=== PATIENT | female | born 1960 | race Caucasian/White ===

== ENCOUNTER 2019-04-15 02:46 | Observation (INO) | payer MEDICARE, OTHER ==
[~2019-04-15] VITALS: Ht 162.6 cm; Wt 77.6 kg
--- NOTE | ~2019-04-15 | HEMODYNAMI ---
PATIENT:MINGO CORDERO MEDICAL RECORD: [id number] : 60 LOCATION:[facility] D.2128 ADMISSION DATE: 04/15/19 Generatedon:04/15/201914:44 Patient name: MINGO CORDERO Patient #: [id number] SSN: D OB: 1960 Date of study: 04/15/2019 Page: Of Hemodynamic Procedure Report Patient Data Patient Demographics Procedure consent was obtained First Name: MINGO Gender: Female Last Name: GIL : 1960 [facility] Initial: AIDEE Age: 59 year(s) Patient #: [id number] Race: Unknown Additional ID: [id number] Contact details Address: [address] [place] [address] State: [place] City: [place] Zip code: [address] Past Medical History Allergies Allergen Reaction Date Comments Reported Other allergy 04/15/2019 SULFA Admission Admission Data Admission Date: 04/15/2019 Admission Time: 4:14 Admit Source: Emergency department Room #: D.2128 Lab Results Lab Result Date: 04/15/2019 Lab Result Time: 3:03 Biochemistry Name Units Result Min Max BUN mg/dl 10 --(-*--)-- 7 18 Creatinine mg/dl 0.7 --(*---)-- 0.6 1.3 CBC Name Units Result Min Max Hematocrit % 35.2 *-(----)-- 42 54 Hemoglobin g/dl 12.4 *-(----)-- 13.5 17.5 Procedure Procedure Types Cath Procedure Diagnostic Procedure LHC LHC w/Coronaries w/Grafts Sedation Charges Moderate Sedation up to 15 minutes PCI Procedure AMI/SVG/UPPER DOUBLER PTCA or Stent SVG-BMS/BONNIE Initial Procedure Description Procedure Date Procedure Date: 04/15/2019 Procedure Start Time: 14:19 Procedure End Time: 14:43 Procedure Staff Name Function Russ Packer MD Performing Physician Harinder Garcia RT Monitor Mary Alice Bustillo RT Scrub Mildred Cristiano RN Nurse Procedure Data Cath Procedure Fluoroscopy Diagnostic fluoroscopy Total fluoroscopy Time: 5.4 time: 5.4 min min Diagnostic fluoroscopy Total fluoroscopy dose: 592 dose: 592 mGy mGy Contrast Material Contrast Material Type Amount (ml) Isovue 300 86 Entry Location Entry Primary Successful Side Size Upsize Upsize Entry Closure Succes sful Closure Location (Fr) 1 (Fr) 2 (Fr) Remarks Device Remarks Femoral Right 5 Fr 6 Fr Exoseal artery Short Estimated blood loss: 10 ml Diagnostic catheters Device Type Used For End Catheter Placement MULTIPACK JL 4.0 5Fr Procedure catheter MULTIPACK 3DRC 5Fr Procedure catheter MULTIPACK Pigtail 5 Fr Procedure catheter Procedure Complications No complications Procedure Medications Medication Administration Route Dosage 0.9% NaCl I.V. 100 ml/hr Oxygen etCO2 Nasal cannula 2 l/min Lidocaine 2% added to field 20 Heparin Flush Bag added to field 2 bags (1000units/500ml NS) Versed I.V. 2 mg Fentanyl I.V. 50 mcg Heparin Bolus I.V. 5000 units Integrilin (Bolus I.V. 6.8 ml 2mg/ml) Plavix P.O. 600 mg Fentanyl I.V. 50 mcg Hemodynamics Rest HGB: 12.4 (g/dl) Heart Rate: 71 (bpm) Pressure Samples Time Site Value (mmHg) Purpose Heart Use Rate(bpm) 14:25 LV 151/5,13 Snapshot 68 14:26 AO 156/80(114) Pullback 67 14:26 LV 155/12,17 Pullback 67 Gradients Valve Time Site 1 Site 2 Mean SEP/DFP Peak To Heart Use (mmHg) (sec/min) Peak Rate (mmHg) (bpm) Aortic 14:26 LV AO 0 18 0 67 155/12,17 156/80(114) Calculations Valve P-P Mean Valve Index Valve Source Name Gradient Area Flow (cm2) Aortic 0 0 0 0 Snapshots Pre Cath Intra NCS Post Cath Vital Signs Time Heart Resp SPO2 etCO2 NIBP (mmHg) Rhythm Pain Sedation Rate (ipm) (%) (mmHg) Status Level (bpm) 14:14:04 73 13 98 34.3 186/108(148) NSR 0 (11) 10(A) , No pain 14:18:38 63 16 97 23.8 171/92(136) NSR 0 (11) 10(A) , No pain 14:23:09 69 14 98 23.1 170/96(139) NSR 0 (11) 10(A) , No pain 14:27:37 66 15 98 21.6 163/98(134) NSR 0 (11) 9(A) , No pain 14:32:05 67 13 98 28.9 159/87(120) NSR 0 (11) 9(A) , No pain 14:36:31 67 18 100 35.7 167/90(144) NSR 0 (11) 10(A) , No pain 14:41:02 67 10 99 36.5 171/97(144) NSR 0 (11) 10(A) , No pain Medications Time Medication Route Dose Verified Delivered Reason Notes Effectiveness by by 14:12:49 0.9% NaCl I.V. 100 Russ Mildred used for ml/hr [facility] procedure MD BUSBY 14:12:55 Oxygen etCO2 2 Russ Vigila used for Nasal l/min [place] Cristiano procedure cannula MD BUSBY 14:13:01 Lidocaine 2% added 20ml Russ Solano for local to vial [facility] anesthetic field MD DELANEY 14:13:05 Heparin Flush added 2 Russ Solano used for Bag to bags [facility] procedure (1000units/500ml field MD DELANEY NS) 14:19:14 Versed I.V. 2 mg Russ Vigila for sedation [facility] Suman Quinonez MD, RN 14:19:19 Fentanyl I.V. 50 Russ Vigila for sedation mcg [facility] Suman Quinonez MD, RN 14:24:44 Fentanyl I.V. 50 Russ Vigila for sedation mcg [facility] Suman Quinonez MD, RN 14:29:35 Heparin Bolus I.V. 5000 Russ Vigila for verif ied units [facility] anticoagulation with Dr. MD BUSBY [place] 14:29:53 Integrilin I.V. 6.8 Russ Vigila for waste d (Bolus 2mg/ml) ml [facility] Suman Quinonez antiplatelet 302mL MD BUSBY therapy 14:31:32 Plavix P.O. [address] for mg [facility] Suman Quinonez antiplatelet MD BUSBY therapy Procedure Log Time Note 13:52:24 Informed consent obtained and on chart 13:52:27 Admit Source: Emergency department 13:53:43 Harinder Garcia RT(R) sent for patient. Start room use. 13:53:44 Time tracking: Regular hours (M-F 7:00 - 5:00) 13:53:47 Plan of Care:Hemodynamics will remain stable., Cardiac rhythm will remain stable., Comfort level will be maintained., Respiratory function will remain adequate., Patient/ family verbilizes understanding of procedure., Procedure tolerated without complication., Recovers from procedure without complications.. 14:04:14 Patient received from Med II to CCL 1 Alert and oriented. Tansferred to table in Prone position. 14:04:15 Warm blankets applied, and jose ramon hugger turned on for patient comfort. 14:04:16 Correct patient and procedure confirmed by team. 14:04:16 ECG and BP/O2 sat monitors applied to patient. 14:12:40 Vital chart was started 14:12:49 0.9% NaCl 100 ml/hr I.V. was administered by Mildred Quinonez RN; used for procedure; 14:12:55 Oxygen 2 l/min etCO2 Nasal cannula was administered by Mildred Quinonez RN; used for procedure; 14:13:01 Lidocaine 2% 20ml vial added to field was administered by Russ Packer MD; for local anesthetic; 14:13:05 Heparin Flush Bag (1000units/500ml NS) 2 bags added to field was administered by Russ Packer MD; used for procedure; 14:15:12 Baseline sample Acquired. 14:15:14 Rhythm: sinus rhythm 14:15:16 Full Disclosure recording started 14:15:26 H&P Date Dictated: 04/15/2019 Within 30 days and on chart.. 14:15:28 Pre-procedure instructions explained to patient. 14:15:28 Pre-op teaching completed and patient verbalized understanding. 14:15:29 Family in waiting room. 14:15:31 Patient NPO since Breakfast. 14:15:42 Patient allergic to Other allergySULFA 14:15:47 Is the patient allergic to Iodine/contrast media? No. 14:15:49 Is patient on blood thinner?No 14:15:50 Patient diabetic? Yes. 14:15:51 If diabetic: On Metformin? Yes 14:15:53 If on Metformin: Last Dose? 04/14/2019 14:15:55 Previous problem with sedation/anesthesia? No ? 14:15:57 Snore? No 14:15:57 Sleep apnea? No 14:15:58 Deviated septum? No 14:16:02 Opens mouth fully? Yes 14:16:04 Sticks out tongue? Yes 14:16:05 Airway obstruction? No ? 14:16:09 Dentures? No ? 14:16:11 Pre procedure: right dorsailis pedis pulse 2+ Normal; easily identifiable; not easily obliterated 14:16:13 Patient pain scale 0/10 ?. 14:16:21 IV patent on arrival in right forearm with 0.9% NaCl at [facility]. 14:18:22 Lab Result : BUN 10 mg/dl 14:18:22 Lab Result : Creatinine 0.7 mg/dl 14:18: Lab Result : Hemoglobin 12.4 g/dl 14:18: Lab Result : Hematocrit 35.2 % 14:18:26 Lab results completed and on chart. 14:18:29 Right groin area was prepped with chlora-prep and draped in sterile fashion 14:18:31 Alarms reviewed by R. N. 14:18:31 Sharps counted by scrub and verified by R.N. 14:18:34 Use device set Femoral Dx 14:18:35 ACIST Syringe (83339) opened to sterile field. 14:18:35 Bag Decanter (2002S) opened to sterile field. 14:18:39 Medline Cath Pack ([id number]) opened to sterile field. 14:18:41 ACIST Hand Control (73985) opened to sterile field. 14:18:41 ACIST Manifold (32051) opened to sterile field. 14:18:42 Tegaderm 4 x 4 (1626W) opened to sterile field. 14:18:45 SHEATH 5FR Susan (LWT095) opened to sterile field. 14:18:48 DIAGNOSTIC WIRE .035 260cm J wire (990126) opened to sterile field. 14:18:49 DIAGNOSTIC Multipack 5Fr catheter set ([id number]) opened to sterile field. 14:18:55 Physician arrived 14:18:55 --------ALL STOP TIME OUT------ 14:18:55 Final Timeout: patient, procedure, and site verified with staff and physician. All members of the team are in agreement. 14:18:57 Right groin site verified by team. 14:18:59 Maximum allowable Isovue 300 dose 300ml. Physician notified. (300ml for normal creatinines. For patients with creatinine of 1.7 or higher multiply weight(kg) x 5 divided by creatinine.) 14::02 Fire Safety Assessment: A--An alcohol-based skin anteseptic being used preoperatively., C--Open oxygen or nitrous oxide is being used., D--An ESU, laser, or fiber-optic light is being used. 14:: Physical assessment completed. ASA score P 2 - A patient with mild systemic disease as per Russ Packer MD. 14:: Sedation plan: IV Moderate Sedation Medication:Versed, Fentanyl 14:: Versed 2 mg I.V. was administered by Mildred Quinonez RN; for sedation; ::18 Procedure started. 14:: Fentanyl 50 mcg I.V. was administered by Mildred Quinonez RN; for sedation; 14:: Local anesthetic to right femoral artery with Lidocaine 2% by Russ Packer MD.INITIAL ACCESS ONLY 14:19:29 A 5 Fr sheath was inserted into the Right Femoral artery 14:19:53 Zero performed for pressure channel P1 14:20:28 A MULTIPACK JL 4.0 5Fr catheter was advanced over the wire and used for Procedure. 14:21:30 LCA angiography performed. 14:22:05 Catheter exchanged over wire. 14:22:09 A MULTIPACK 3DRC 5Fr catheter was advanced over the wire and used for Procedure. 14:22:17 RCA angiography performed. 14:24:04 SVG to LAD angiography performed. 14:24:09 SVG to RCA angiography performed. 14:24:17 Catheter exchanged over wire. 14:24:21 A MULTIPACK Pigtail 5 Fr catheter was advanced over the wire and used for Procedure. 14:24:44 Fentanyl 50 mcg I.V. was administered by Mildred Quinonez RN; for sedation; 14::58 LV gram done using WALTON 14:26:00 Injector settings: Ml/sec: 10, Volume: 20, 14:26:01 LV hemodynamics recorded. 14:26:05 EF : 55 % 14:26:08 Catheter removed. 14:26:11 SHEATH 6FR Susan (XYN690) opened to sterile field. 14:26:23 GUIDE 6FR HS I catheter (LA6HSI) opened to sterile field. 14:26:24 WHISPER 300cm guide wire ([id number]) opened to sterile field. 14:26:24 INFLATOR Merit BasixCompak (II5712) opened to sterile field. 14:27:33 Sheath upsized to a 6 Fr Short. 14:29:01 6 Fr HSI guide catheter was inserted over the wire 14:29:08 Guide Catheter removed. unable to cannulate vessel. 14:29:15 GUIDE 6FR MB 1 catheter (LA6MB1) opened to sterile field. 14:29:23 6 Fr MB1 guide catheter was inserted over the wire 14:29:35 Heparin Bolus 5000 units I.V. was administered by Mildred Quinonez RN; for anticoagulation; verified with Dr. Marquis 14:29:53 Integrilin (Bolus 2mg/ml) 6.8 ml I.V. was administered by Mildred Quinonez RN; for antiplatelet therapy; wasted 302mL 14:30:02 WHISPER wire advanced. 14:31:32 Plavix 600 mg P.O. was administered by Mildred Quinonez RN; for antiplatelet therapy; 14:32:35 Wire advanced across lesion. 14:33:52 Inflate balloon Inflation number: 1 A EMERGE OTW 3.5 x 20 balloon ([id number]) was prepped and advanced across the Aorta Right -> R PDA , then inflated to 18 SALAZAR for 0:30 (min:sec) . 14:35:07 Inflation number: 2 The EMERGE OTW 3.5 x 20 balloon ([id number]) was reinflated across the Aorta Right -> R PDA , to 16 SALAZAR for 0:30 (min:sec) . 14:36:37 Inflation number: 3 The EMERGE OTW 3.5 x 20 balloon ([id number]) was reinflated across the Aorta Right -> R PDA , to 16 SALAZAR for 0:30 (min:sec) . 14:37:42 Inflation number: 4 The EMERGE OTW 3.5 x 20 balloon ([id number]) was reinflated across the Aorta Right -> R PDA , to 20 SALAZAR for 0:30 (min:sec) . 14:38:11 Balloon removed over the wire. 14:38:11 Wire removed. 14:38:12 Guide catheter removed. 14:38:19 EXOSEAL 6Fr (EX600) opened to sterile field. 14:38:29 Sheath removed intact; hemostasis achieved with Exoseal to the Right Femoral artery. 14:38:31 Procedure ended.(Physican Out) 14:38:40 Fluoroscopy time 05.40 minutes. 14:38:44 Flurop Dose total: 592 14:38:44 Fluoroscopy dose: 592 mGy 14:39:06 Contrast amount:Isovue 300 86ml. 14:39:08 Sharps counted by scrub and verified by R.N. 14:39:59 Insertion/operative site no bleeding no hematoma. 14:40:02 Post-op/insertion site Right Femoral artery dressed using a 4 x 4 and Tegaderm. 14:40:06 Post right femoral artery:stable, soft, clean and dry 14:40:07 Post Procedure Pulses reassessed and unchanged 14:40:10 Post-procedure physical assessment completed. ASA score P 2 - A patient with mild systemic disease as per Russ Packer MD. 14:40:22 Post procedure rhythm: unchanged. 14:40:25 Estimated blood loss: 10 ml 14:40:26 Post procedure instruction explained to patient.Patient verbalizes understanding. 14:40:26 Patient needs reinforcement of post procedure teaching. 14:41:21 Procedure type changed to Cath procedure, Diagnostic procedure, LHC, LHC w/Coronaries w/Grafts, Sedation Charges, Moderate Sedation up to 15 minutes, PCI procedure, AMI/SVG/UPPER DOUBLER PTCA or Stent, SVG-BMS/BONNIE Initial 14:43:37 Procedure and supply charges have been captured, reviewed, submitted and are correct. 14:43:41 Procedure Complication : No complications 14:43:43 Vital chart was stopped 14:43:43 See physician's report for complete and final results. 14:43:45 Report given to PCU. 14:43:48 Patient transfered to PCU with Stretcher. 14:43:50 Procedure ended. 14:43:50 Full Disclosure recording stopped 14:43:53 End room use (Document Last) Intervention Summary Intervention Notes Time ActionType Lesion and Equipment Action# Pressure Duration Attributes Used 14:33:52 Inflate Aorta Right EMERGE OTW 1 18 00:30 balloon -> R PDA 3.5 x 20 balloon ([id number]) 14:35:07 Reinflate Aorta Right EMERGE OTW 2 16 00:30 balloon -> R PDA 3.5 x 20 balloon ([id number]) 14:36:37 Reinflate Aorta Right EMERGE OTW 3 16 00:30 balloon -> R PDA 3.5 x 20 balloon ([id number]) 14:37:42 Reinflate Aorta Right EMERGE OTW 4 20 00:30 balloon -> R PDA 3.5 x 20 balloon ([id number]) Device Usage Item Name Manufacture Quantity Catalog Number Hospital Part Current Min imal Lot# / Charge Number Stock Stock Serial# Code ACIST Acist 1 63420 779275 765326 353531 20 Syringe Medical (61602) Systems [employer] Bag Decanter Microtek 1 2001S 293756 89691 113432 5 () Medical Inc. Medline Cath Medline 1 [id number] 509672 86569 614908 5 Pack ([id number]) ACIST Hand Acist 1 53362 075688 499146 982475 5 Control Medical (24144) Systems Inc ACIST Acist 1 35367 438899 647114 239682 5 Manifold Medical (09304) Systems Inc Tegaderm 4 x 3M 1 1626W 300915 618574 388249 5 4 (1626W) SHEATH 5FR Terumo 1 YHT309 578538 844895 543670 5 Susan (WQN731) DIAGNOSTIC St Arash 1 304338 434180 758064 522124 30 WIRE .035 260cm J wire (671061) DIAGNOSTIC Cardinal 1 SB3088 979383 95347 851511 30 Multipack Health 5Fr catheter set (WI3086) MULTIPACK JL Cardinal 1 731361 5 4.0 5Fr Health catheter MULTIPACK Cardinal 1 973619 5 3DRC 5Fr Health catheter MULTIPACK Cardinal 1 705049 5 Pigtail 5 Fr Health catheter SHEATH 6FR Terumo 1 YDR337 683478 365605 622644 40 Susan (PFX667) GUIDE 6FR HS Medtronic 1 LA6HSI 822728 68813 152640 1 I catheter (LA6HSI) WHISPER Conner 1 [id number] 455349 240710 984307 5 300cm guide Vascular wire ([id number]) INFLATOR [facility] 1 LS8896 957722 392169 073597 15 [facility] BasixCompak (AX7112) GUIDE 6FR MB Medtronic 1 LA6MB1 261160 30425 757845 1 1 catheter (LA6MB1) EMERGE OTW [place] 1 [id number] 180181 529986 309849 5 [id number] 3.5 x 20 Scientific balloon ([id number]) EXOSEAL 6Fr Cardinal 1 EX600 084789 125842 499778 10 (EX600) Health Signature Audit [place] Stage Time Signature Unsigned Intra-Procedure 04/15/2019 Harinder Garcia 2:44:19 PM RT(R) Signatures Monitor : Harinder Garcia RT Signature : Date : Time : [address] [address]
[2019-04-15] MEDS ORDERED: LISINOPRIL10 MG PO (02:53)
[2019-04-15] MEDS ORDERED: PROZAC20 MG PO (02:53)
[2019-04-15] MEDS ORDERED: PROTONIX40 MG PO (02:53)
[2019-04-15] MEDS ORDERED: PLAVIX75 MG PO (02:53)
[2019-04-15] MEDS ORDERED: GEMFIBROZIL600 MG PO (02:54)
[2019-04-15] MEDS ORDERED: MECLIZINE HCL25 MG PO (02:54)
[2019-04-15] MEDS ORDERED: GLUCOPHAGE1000 MG PO (02:54)
[2019-04-15] MEDS ORDERED: BUTALB-APAP-CA1 EACH PO (02:55)
[2019-04-15] MEDS ORDERED: ZYRTEC10 MG PO (02:55)
[2019-04-15 03:13] LABS: BASOPHILS 0.2 % (0-2); EOSINOPHILS 3.7 % (0-7); HEMATOCRIT 35.2 % (36.0-48.0); HEMOGLOBIN 12.4 g/dL (12-16); IMMATURE GRANULOCYTES 0.2 % (0-5); LYMPHOCYTES 40.6 % (15-50); MCH 28.3 pg (26.0-34.0); MCHC 35.2 g/dL (31.0-37.0); MCV 80.4 fL (80.0-100.0); MONOCYTES 9.9 % (2-11); NEUTROPHILS 45.4 % (40-80); PLATELET COUNT 174 10x3/uL (130-400); RBC 4.38 10x6/uL (4.00-5.40); RDW 13.2 % (11.5-14.5); WBC 6.3 10x3/uL (4.8-10.8)
[2019-04-15 03:19] LABS: APTT 30.5 SECONDS (22.8-39.4); INR 1.11 (0.85-1.17); PROTIME 13.8 SECONDS (11.6-15.0)
[2019-04-15 03:23] LABS: ALBUMIN 3.7 g/dL (3.4-5.0); ALKALINE PHOSPHATASE 116 U/L (46-116); ALT (SGPT) 20 U/L (10-68); BILIRUBIN - TOTAL 0.46 mg/dL (0.2-1.3); CALC OSMOLALITY 288 mosm/kg (275-300); CALCIUM 9.1 mg/dL (8.5-10.1); CARBON DIOXIDE 26.2 mmol/L (21.0-32.0); CHLORIDE - SERUM 104 mmol/L (98-107); CREATININE - SERUM 0.7 mg/dL (0.6-1.3); GLUCOSE 291 mg/dL (74-106); POTASSIUM - SERUM 3.7 mmol/L (3.5-5.1); PROTEIN - SERUM 7.2 g/dL (6.4-8.2); SODIUM 140 mmol/L (136-145); UREA NITROGEN 10 mg/dL (7-18); eGFR NON AFRICAN AMERICAN > 90 mL/min (90-120)
[2019-04-15 03:34] LABS: CKMB 1.1 U/L (0.0-3.6); CREATINE KINASE 77 UL (21-215); TROPONIN-I < 0.017 ng/mL (0.000-0.060)
--- NOTE | 2019-04-15 04:33 | NUR ---
PT AMBULATED TO RESTROOM INDEPENDENTLY.
--- NOTE | 2019-04-15 07:10 | NUR ---
REPORT RECEIVED FROM ICEBOX WORKER AND PATIENT CARE ASSUMED. PATIENT LAYING IN BED ON RT SIDE AWAKE, ALERT AND ORIENTED X 4. PATIENT DENIES ANY NEEDS OR PAIN. WILL CONTINUE WITH PLAN OR CARE. SR UP X 2 BED IN LOW POSTION AND CALL LIGHT IN REACH.
[2019-04-15 08:10] VITALS: BP 144/76
[2019-04-15 08:15] VITALS: BP 144/76; BMI 29.4
--- NOTE | 2019-04-15 08:45 | NUR ---
DR LOPEZ IN ROOM. NEW ORDERS RECEIVED . PATIENT TO BE NPO AND CATH TODAY. CONSENTS OBTAINED. PATIENT DENIES ANY NEEDS OR PAIN. WILL CONTINUE TO MONITOR. SR UP X 2 BED IN LOW POSITION AND CALL LIGHT IN REACH.
[2019-04-15 09:46] LABS: CKMB 1.5 U/L (0.0-3.6); CREATINE KINASE 74 UL (21-215)
[2019-04-15 09:48] LABS: TROPONIN-I < 0.017 ng/mL (0.000-0.060)
[2019-04-15 11:37] VITALS: BP 133/69
--- NOTE | 2019-04-15 13:05 | NUR ---
PATIENT LAYING ON LEFT SIDE WITH EYES CLOSED AND BREATHING EVENLY. RECEIVED CALL FROM ENDOSCOPY REGISTERED NURSE TEAM TO PREOP. PREOP GIVEN PER DEC. WILL CONTITUE TO MONITOR. SR UP X 2 BED IN LOW POSTION AND CALL LIGHT IN REACH.
[2019-04-15 13:56] VITALS: BMI 29.3
--- NOTE | 2019-04-15 14:00 | NUR ---
PATIENT IS STABLE AND VSS. SECOND HAND TEAM TO ROOM . PATIENT TAKEN TO SECOND HAND VIA BED AND SECOND HAND TEAM.
[2019-04-15 14:52] VITALS: Ht 162.6 cm; Wt 77.6 kg
--- NOTE | 2019-04-15 15:15 | NUR ---
PATIENT RETURNED TO ROOM VIA HOSPITAL BED AND MEDICATION AIDE TEAM. PATIENT IS SLEEPING BUT AROUSES EASILY TO VOICE. RT GROIN DRSG C/D/I. PATIENT DENIES ANY NEEDS OR PAIN. PATIENT LAYING FLAT WITH LEGS STRAIGHT. PATIENT IS STABLE AND VSS. WILL CONTINUE TO MONITOR. SR UP X 2 BED IN LOW POSITION AND CALL LIGHT IN REACH.
[2019-04-15 16:00] VITALS: BP 145/91
--- NOTE | 2019-04-15 16:00 | NUR ---
PATIENT IS STABLE AND VSS. RT GROIN DRSG C/D/I.NO SIGNS OF BLEEDING BRUISING OR HEMATOMA NOTED. WILL CONTINUE TO MONITOR. SR UP X 2 BED IN LOW POSITION AND CALL LIGHT IN REACH.
--- NOTE | 2019-04-15 19:00 | NUR ---
PATIENT LAYING IN BED. EYES CLOSED, CHEST RISING AND FALLING. NO DISTRESS NOTED.
[2019-04-15 20:00] VITALS: BP 125/72
[2019-04-16] VITALS: BP 145/81
[2019-04-16 00:58] LABS: CKMB 2.7 U/L (0.0-3.6); CREATINE KINASE 71 UL (21-215)
--- NOTE | 2019-04-16 03:17 | NUR ---
PATIENT LAYING IN BED. EYES CLOSED, CHEST RISING AND FALLING. NO DISTRESS NOTED.
[2019-04-16 04:00] VITALS: BP 122/74
[2019-04-16 06:37] LABS: BASOPHILS 0.3 % (0-2); EOSINOPHILS 2.6 % (0-7); HEMATOCRIT 35.7 % (36.0-48.0); HEMOGLOBIN 12.3 g/dL (12-16); IMMATURE GRANULOCYTES 0.3 % (0-5); LYMPHOCYTES 22.7 % (15-50); MCH 27.9 pg (26.0-34.0); MCHC 34.5 g/dL (31.0-37.0); MONOCYTES 8.9 % (2-11); NEUTROPHILS 65.2 % (40-80); PLATELET COUNT 176 10x3/uL (130-400); RBC 4.41 10x6/uL (4.00-5.40); RDW 13.3 % (11.5-14.5); WBC 7.6 10x3/uL (4.8-10.8)
[2019-04-16 07:07] LABS: CALC OSMOLALITY 291 mosm/kg (275-300); CALCIUM 9.1 mg/dL (8.5-10.1); CARBON DIOXIDE 25.9 mmol/L (21.0-32.0); CHLORIDE - SERUM 107 mmol/L (98-107); CREATININE - SERUM 0.7 mg/dL (0.6-1.3); POTASSIUM - SERUM 3.5 mmol/L (3.5-5.1); SODIUM 143 mmol/L (136-145); UREA NITROGEN 9 mg/dL (7-18); eGFR NON AFRICAN AMERICAN > 90 mL/min (90-120)
--- NOTE | 2019-04-16 07:10 | NUR ---
REPORT RECEIVED FROM TRAFFIC ATTENDANT AND PATIENT CARE ASSUMED. PATIENT LAYING IN BED ON LT SIDE WITH EYES CLOSED AND BREATHING EVENLY. PATIENT IS STABLE AND VSS. WILL CONTINUE WITH PLAN OF CARE. SR UP X 2 BED IN LOW POSITION AND CALL LIGHT IN REACH.
[2019-04-16 07:11] LABS: GLUCOSE 235 mg/dL (74-106)
[2019-04-16 08:00] VITALS: BP 124/69
[2019-04-16 08:18] VITALS: BP 124/69
--- NOTE | 2019-04-16 09:47 | CN ---
PATIENT NAME:MINGO CORDERO MEDICAL RECORD: [id number] : 60 LOCATION:D. D.2128 ADMIT DATE: 04/15/19 ACCOUNT: [id number] CONSULTING PHYSICIAN: ALANA LOPEZ MD REFERRING PHYSICIAN: JOYCE DAVIS MD DATE OF CONSULTATION: 04/15/2019 HISTORY OF PRESENT ILLNESS: A 59-year-old female with known history of coronary artery disease, onset at young age with coronary artery bypass grafting 3-vessel in 1997 has underwent intervention approximately 4 times since that time, last 4 years ago, history of hypertension, reports a classic story course of angina over the last 3 months, onset of rest symptomology yesterday, chest tightness, pressure, ranging to the jaw. Cardiac enzymes negative at this point. We are asked to see her concerning her cardiovascular status. PAST MEDICAL HISTORY: Includes: 1. History of hypertension. 2. Hyperlipidemia. 3. Diabetes mellitus. 4. Coronary artery disease as described above. MEDICATIONS: Include Glucophage 1 gram b.i.d., Protonix 40 every day, Fioricet 1 q.4 hours p.r.n., Prozac 20 every day, lisinopril 10 every day, gemfibrozil 600 b.i.d., Plavix 75 every day. SOCIAL HISTORY: Typically lives in [place] with her granddaughter. She is a nonsmoker, nondrinker. Easily able to take care of all her ADLs. No set exercise program. REVIEW OF SYSTEMS: The patient reports easy bruising but reports no swollen glands. The patient reports no fever, no night sweats, no significant weight gain, no significant weight loss. No significant exercise tolerance. The patient reports no dry eyes, no irritation, no vision change. Patient reports no difficulty hearing and no ear pain. Patient reports no frequent nose bleeds or nose and sinus problems. Patient reports on arm pain on exertion. No shortness of breath while lying down. No history of heart murmur. Patient reports no cough, no wheezing or coughing up blood. Patient reports no abdominal pain, no vomiting. Normal appetite. No diarrhea and not vomiting blood. No nausea and no constipation. Patient reports no incontinence. No difficulty urinating. No hematuria. No increased frequency. Patient reports no muscle aches. No weakness, no arthralgias, no back pain. No swelling of the extremities. Patient reports no abnormal mole, no jaundice, no rashes. Reports no loss of consciousness. No weakness and no numbness. No seizures, dizziness, or headaches. The patient reports no depression, no sleep disturbance, feeling safe in a relationship and no alcohol abuse. Patient reports on fatigue. Reports no runny nose or sinus pressure. No itching, no hives, and no frequent sneezing. PHYSICAL EXAMINATION: GENERAL: Well-developed, well-nourished female appears older than stated age. VITAL SIGNS: Blood pressure 144/76, pulse 56 and regular. HEENT: Normocephalic, atraumatic. NECK: No JVD or bruit. HEART: Regular. LUNGS: Good air excursion. CONSULT REPORT [id number] MINGO CORDERO ABDOMEN: Soft, nontender. EXTREMITIES: Pulses 2+. No edema. DIAGNOSTIC DATA: ECG shows sinus tachycardia, ST-T changes inferolaterally. IMPRESSION: Acute coronary syndrome. PLAN: For angiography, intervention based on the above. TRANSINT:[id number] Voice Confirmation ID: [id number] DOCUMENT ID: [id number] ALANA LOPEZ MD at 0947 CC: [id number] DICTATION DATE: 04/15/19833 PROFESSOR OF KINESIOLOGY: 04/15/19 0850 ADM IN [place] [id number] [place] [id number]
--- NOTE | 2019-04-16 09:47 | OP ---
PATIENT NAME: MINGO CORDERO MEDICAL RECORD: [id number] :60 LOCATION:D.M2 D.2128 ADMISSION DATE:04/15/19 SURGEON: ALANA LOPEZ MD DATE OF OPERATION: 04/15/2019 PROCEDURE: Left heart catheterization, selective coronary angiography, right femoral artery approach. CATHETERS: A 5-Cameroonian sheath, 5/4 left and right Arthur, 5/4 pig. The procedure was well tolerated. The patient was returned to tarango. Sheath was removed. ExoSeal device was placed. FINDINGS: Left ventriculography in 30-degree WALTON view: Normal wall motion. Normal systolic function. CORONARY ANATOMY: LEFT MAIN: Left main basically fills the LAD for a short period of time. LAD: LAD itself is totally occluded proximally. CIRCUMFLEX: She has a very small circumflex system with OM having ostial stenosis of approximately 80%. RIGHT CORONARY ARTERY: Right coronary artery has a PL branch and has mild luminal irregularities, but no significant stenosis. BYPASS GRAFTS: Saphenous vein graft, appears to be a sclerotic graft of D1 and LAD. The LAD has severe diffuse in-stent restenosis in the small vessel distally, not quite reaching the apex. The diagonal itself is larger and has no significant stenosis. Saphenous vein graft: Saphenous vein graft to the right has sequential 80% stenosis in-stent this supplies the posterior descending. IMPRESSION: We will plan intervention to the saphenous graft to the right momentarily. DESCRIPTION OF PROCEDURE: A 5-Cameroonian sheath was exchanged for a 6-Cameroonian sheath. Hockey stick guiding catheter provided excellent guide catheter support followed by 300 cm Whisper wire, which was placed across the right coronary down this part of PDA. We then dilated up and down the restenotic saphenous vein graft with a 3.5 x 12 mm balloon up to 20 atmospheres for 45 seconds with each inflation. Final angiography shows excellent resolution of 80% stenosis to 10% or less residual. CHESTER flow was 3 throughout the procedure. Integrilin was used during the case. Sheath was closed with ExoSeal device. Plavix was loaded in the lab. TRANSINT:[id number] Voice Confirmation ID: [id number] DOCUMENT ID: [id number] ALANA LOPEZ MD at 4971 CC: [id number] DICTATION DATE: 04/15/19 5130 TILE MOLDER: 04/15/19 1538 ADM IN [facility] [address] [place] [id number]
[2019-04-16 10:22] LABS: APPEARANCE CLOUDY (CLEAR); COLOR YELLOW (YELLOW); GLUCOSE 250 mg/dL (NEGATIVE); NITRITE POSITIVE (NEGATIVE); PROTEIN TRACE mg/dL (NEGATIVE)
[2019-04-16 10:23] LABS: BACTERIA MANY /hpf (NONE SEEN); BILIRUBIN NEGATIVE (NEGATIVE); EPITHELIAL CELLS 0-5 /hpf (0-5); KETONE NEGATIVE (NEGATIVE); RED CELLS - URINE 0-5 /hpf (0-5); UROBILINOGEN NORMAL (NORMAL); WHITE CELLS - URINE >50 /hpf (0-5)
[2019-04-16 11:51] VITALS: BP 131/62
[2019-04-16] MEDS ORDERED: LEVOFLOXACIN500 MG PO (11:53)
[2019-04-16 12:00] VITALS: BP 132/72
--- NOTE | 2019-04-16 13:57 | NUR ---
PATIENT LAYING IN BED ON BACK WITH HOB ELEVATED AND WATCHING TV. PATIENT IS STABLE AND VSS. PATIENT DENIES ANY NEEDS OR PAIN. WILL CONTINUE TO MONITOR. SR UP X 2 BED IN LOW POSITION AND CALL LIGHT INREACH.
--- NOTE | 2019-04-16 14:27 | NUR ---
NOTIFIED PATIENT AND FAMILY TO HOLD METFORMIN FOR 48 HRS. PT ADVISED SHE WAS AWARE SHE HAS HAD PROCEDURE BEFORE
--- NOTE | 2019-04-16 14:49 | NUR ---
PATIENT IS STABLE AND VSS. RT GROIN DRSG C/D/I. NO SIGNS OF BLEEDING , BRUISING OR HEMATOMA. PATIENT DENIES ANY NEEDS OR PAIN. ORDERS RECEIVED FOR DC. VERBAL AND WRITTEN INSTRUCTIONS GIVEN TO PATIENT AND DTR. PATIENT VERBALIZED UNDERSTANDING AND SIGNED WRITTEN INSTRUCTIONS. IV DC/D WITHOUT DIFFICULTY AND CATHETER INTACT. PATIENT TRANSPORTED TO FRONT DOOR VIA WC AND HOSPITAL PERSONNEL. PATIENT TO PRIVATE VEHICLE DRIVEN BY FAMILY MEMBER.
--- NOTE | 2019-04-19 10:23 | MORECARE ---
CASE MANAGEMENT DISCHARGE SUMMARY PATIENT: MINGO CORDERO UNIT: [id number] ADM DATE: 04/15/19 AGE: 59 : 60 SEX: F ROOM/BED: D.2477 AUTHOR: JUDITH MENDEZ PHYSICIAN: REFERRING PHYSICIAN: JOYCE DAVIS MD DATE OF SERVICE: 04/19/19 Discharge Plan Patient Name: MINGO CORDERO [facility] : 1960 Planned Disposition: Home Anticipated Discharge Date: 04/16/19 Discharge Date: 04/16/2019 Expected LOS: 1 Initial Reviewer: [id number] Initial Review Date: 04/19/2019 Generated: 04/19/19 11:22 am Patient Name: MINGO CORDERO Page [id number] at 1023 All edits/amendments must be made on the electronic document DICTATION DATE: 04/19/19 1022 RIB CHOPPER: SHARIFA 04/19/19 1022 RPT#: [id number] DC DATE:04/16/19 STATUS: DIS IN [facility] [address] [place] [address] END OF REPORT
== END 2019-04-16 14:59 | disposition home or self-care (01) ==
LOC: D.ER 02:46 → D.M2 04:14 → OBSVTIME 04:14 → D.M2 04-16 14:59
PROVIDERS: Emergency Medicine; ADMIT Internal Medicine Nephrology; ATTEND Internal Medicine Nephrology
DX: I24.9 Acute ischemic heart disease, unspecified (principal); I10 Essential (primary) hypertension; E78.5 Hyperlipidemia, unspecified; E11.9 Type 2 diabetes mellitus without complications; I25.10 Atherosclerotic heart disease of native coronary artery without angina pectoris; N39.0 Urinary tract infection, site not specified; I25.119 Atherosclerotic heart disease of native coronary artery with unspecified angina pectoris; I25.110 Atherosclerotic heart disease of native coronary artery with unstable angina pectoris

== ENCOUNTER 2019-07-13 13:26 | Outpatient (CLI) | payer MEDICARE, OTHER ==
[~2019-07-13] VITALS: Ht 162.6 cm; Wt 77.3 kg
--- NOTE | ~2019-07-13 | HEMODYNAMI ---
PATIENT:MINGO CORDERO MEDICAL RECORD: [id number] : 60 [address] [id number] ADMISSION DATE: 07/13/19 Generatedon:07/13/201920:00 Patient name: MINGO COREDRO Patient #: [id number] SSN: [id number] : 1960 Date of study: 07/13/2019 Page: Of Hemodynamic Procedure Report Patient Data Patient Demographics Procedure consent was obtained First Name: MINGO Gender: Female Last Name: GIL : 1960 Middle Initial: AIDEE Age: 59 year(s) Patient #: [id number] Race: SSN: [id number] Additional ID: [id number] Contact details Address: [address] [place] [address] State: [place] City: [place] Zip code: [address] Past Medical History Allergies Allergen Reaction Date Comments Reported Other allergy 04/15/2019 SULFA Admission Admission Data Admission Date: 07/13/2019 Admission Time: 15:03 Arrival Date: 07/13/2019 Arrival Time: 0:00 Admit Source: Emergency Insurance Payor: Medicare department [facility] #: [id number] Room #: [facility] Height (in.): 64 BSA: 1.83 (m2) Height (cm.): 162.56 BMI: 29.18 (kg/m2) Weight (lbs.): 170 Weight (kg.): 77.11 Lab Results Lab Result Date: 07/13/2019 Lab Result Time: 13:50 Biochemistry Name Units Result Min Max BUN mg/dl 15 --(--*-)-- 7 18 Creatinine mg/dl 0.7 --(*---)-- 0.6 1.3 CBC Name Units Result Min Max Hematocrit % 36 *-(----)-- 42 54 Hemoglobin g/dl 12.8 -*(----)-- 13.5 17.5 Procedure Procedure Types Cath Procedure Diagnostic Procedure [facility] w/Coronaries w/Grafts Sedation Charges Moderate Sedation up to 30 minutes PCI Procedure Coronary Stent Coronary Stent Initial AMI/SVG/PROPERTY MANAGEMENT INTERN PTCA or Stent SVG-BMS/BONNIE Initial Procedure Description Procedure Date Procedure Date: 07/13/2019 Procedure Start Time: 19:31 Procedure End Time: 19:53 Procedure Staff Name Function Eugenia Burch RT Monitor Nahid Bell RN Nurse Enrique Frankel MD Performing Physician Harinder Garcia RT Scrub Indication Angina Procedure Data Cath Procedure Fluoroscopy Diagnostic fluoroscopy Total fluoroscopy Time: 5.8 time: 5.8 min min Diagnostic fluoroscopy Total fluoroscopy dose: 715 dose: 715 mGy mGy Contrast Material Contrast Material Type Amount (ml) Isovue 300 126 Entry Location Entry Primary Successful Side Size Upsize Upsize Entry Closure Succes sful Closure Location (Fr) 1 (Fr) 2 (Fr) Remarks Device Remarks Femoral Right 6 Fr Exoseal artery Short Estimated blood loss: 5 ml Diagnostic catheters Device Type Used For End Catheter Placement DIAGNOSTIC Pigtail 5Fr LV Angiography catheter ([id number]) Procedure Complications No complications Procedure Medications Medication Administration Route Dosage Oxygen etCO2 Nasal cannula 2 l/min Heparin Flush Bag added to field 2 bags (1000units/500ml NS) 0.9% NaCl I.V. 100 ml/hr Lidocaine 2% added to field 20 Fentanyl I.V. 50 mcg Versed I.V. 1 mg Heparin Bolus I.V. 4000 units Fentanyl I.V. 50 mcg Versed I.V. 1 mg Plavix P.O. 75 mg Hemodynamics Rest BSA: 1.83 (m2) HGB: 12.8 (g/dl) O2 Consumption: Estimated: 171.73 (ml/min) O2 Co nsumption indexed: Estimated:93.84 (ml/min/m) Heart Rate: 67 (bpm) Pressure Samples Time Site Value (mmHg) Purpose Heart Use Rate(bpm) 19:34 LV 98/6,20 Snapshot 63 Snapshots Pre Cath Intra NCS Post Cath Vital Signs Time Heart Resp SPO2 etCO2 NIBP (mmHg) Rhythm Pain Sedation Rate (ipm) (%) (mmHg) Status Level (bpm) 19:28:10 60 16 99 0 152/94(137) NSR 0 (11) 10(A) , No pain 19:32:29 65 16 92 39.6 151/88(130) NSR 0 (11) 9(A) , No pain 19:36:47 66 16 98 8.9 147/88(118) NSR 0 (11) 9(A) , No pain 19:41:07 62 17 99 38.1 141/74(113) NSR 0 (11) 9(A) , No pain 19:45:23 65 18 100 36.7 136/82(111) NSR 0 (11) 9(A) , No pain 19:49:35 65 16 100 38.9 156/87(129) NSR 0 (11) 9(A) , No pain 19:53:53 64 16 100 37.4 167/89(140) NSR 0 (11) 9(A) , No pain Medications Time Medication Route Dose Verified Delivered Reason Notes Effectiveness by by 19:30:26 Oxygen etCO2 2 Enrique Nahid Per physician Nasal l/min Jostin Bell RN cannula 19:30:33 Heparin Flush added 2 Enrique Newy used for Bag to bags Jostin Bell RN procedure (1000units/500ml field NS) 19:30:42 0.9% NaCl I.V. 100 Enrique Newy Per physician ml/hr Jostin Bell RN 19:30:49 Fentanyl I.V. 50 Enrique Whitfield for sedation mcg Jostin Bell RN 19:30:50 Lidocaine 2% added 20ml Enrique Whitfield for local to vial Jostin Bell RN anesthetic field 19:30:56 Versed I.V. 1 mg Enriuqe Whitfield for sedation Jostin Bell RN 19:31:21 Plavix P.O. 75 mg Enrique Whitfield for Jostin Bell RN antiplatelet therapy 19:37:47 Heparin Bolus I.V. 4000 Enrique Whitfield for units Jostin Bell RN anticoagulation 19:37:52 Fentanyl I.V. 50 Enrique Whitfield for sedation mcg Jostin Bell RN 19:37:57 Versed I.V. 1 mg Enrique Whitfield for sedation Jostin Bell RN Procedure Log Time Note 19:00:34 Nahid Bell RN sent for patient. Start room use. 19:14:41 Informed consent obtained and on chart 19:17:19 Admit Source: Emergency department 19:17:21 Arrival Date: 07/13/2019 12:00:00 AM 19:17:28 Insurance Payor : Medicare 19:17:53 Patient Weight : 170 lbs 19:17:58 Patient Height : 64 inches 19:18:46 Lab Result : Hemoglobin 12.8 g/dl 19:18:46 Lab Result : Hematocrit 36 % 19:18:46 Lab Result : BUN 15 mg/dl 19:18:46 Lab Result : Creatinine 0.7 mg/dl 19:19:02 Indication : Angina 19:19:04 Diagnostic Cath Status : Urgent 19:19:21 ACC Patient presents with Unstable Angina CCS Anginal Class 4--Inability to carry out any physical activity w/o angina. Angina may occur at rest. 19:19:31 ACCPatient has been prescribed/administered the following anti-anginal medication within the last 2 weeks: WENDY-Inhibitor 19:19:33 Procedure Status Urgent Heart Cath (IP). 19:19:38 Time tracking: Regular hours (M-F 7:00 - 5:00) 19:19:41 Plan of Care:Hemodynamics will remain stable., Cardiac rhythm will remain stable., Comfort level will be maintained., Respiratory function will remain adequate., Patient/ family verbilizes understanding of procedure., Procedure tolerated without complication., Recovers from procedure without complications.. 19:19:46 Patient received from Med II to [facility] 2 Alert and oriented. Tansferred to table in Supine position. 19:19:47 ECG and BP/O2 sat monitors applied to patient. 19:19:47 Warm blankets applied, and jose ramon hugger turned on for patient comfort. 19:19:49 Correct patient and procedure confirmed by team. 19:19:50 Pre-procedure instructions explained to patient. 19:19:56 H&P Date Dictated: 07/13/2019 Within 30 days and on chart.. 19:26:59 Vital chart was started 19:26:59 Baseline sample Acquired. 19:27:05 Rhythm: sinus rhythm 19:27:06 Full Disclosure recording started 19:27:07 Pre-op teaching completed and patient verbalized understanding. 19:27:08 Family in waiting room. 19:27:10 Patient NPO since Midnight. 19:27:11 Is the patient allergic to Iodine/contrast media? No. 19:27:12 Was the patient premedicated? No 19:27:13 Is patient on blood thinner?Yes 19:27:15 ACC The patient was administered the following blood thiners within the last 24 hours: ACCPlavix 19:27:17 Patient diabetic? Yes. 19:27:18 If diabetic: On Metformin? Yes 19:27:21 If on Metformin: Last Dose? 07/12/2019 19:27:26 Previous problem with sedation/anesthesia? No ? 19:27:34 Snore? Yes 19:27:35 Sleep apnea? No 19:27:36 Deviated septum? No 19:27:37 Sticks out tongue? Yes 19:27:37 Opens mouth fully? Yes 19:27:45 Airway obstruction? No ? 19:27:48 Dentures? No ? 19:27:51 Pre procedure: right dorsailis pedis pulse 2+ Normal; easily identifiable; not easily obliterated 19:27:53 Pre procedure: left dorsailis pedis pulse 2+ Normal; easily identifiable; not easily obliterated 19:27:55 Patient pain scale 0/10 ?. 19:28:01 IV patent on arrival in right forearm with 0.9% NaCl at [facility]. 19:28:02 Lab results completed and on chart. 19:28:06 Right groin area was prepped with chlora-prep and draped in sterile fashion 19:28:07 Sharps counted by scrub and verified by R.N. 19:28:07 Alarms reviewed by R. N. 19:28:09 --------ALL STOP TIME OUT------ 19:28:09 Physician arrived 19:28:10 Final Timeout: patient, procedure, and site verified with staff and physician. All members of the team are in agreement. 19:28:11 Right groin site verified by team. 19:28:15 Fire Safety Assessment: A--An alcohol-based skin anteseptic being used preoperatively., C--Open oxygen or nitrous oxide is being used., D--An ESU, laser, or fiber-optic light is being used. 19:28:18 Physical assessment completed. ASA score P 2 - A patient with mild systemic disease as per Enrique Frankel MD. 19:28:27 1) 90+ Normal kidney functon but urine findings or structural abnormalities or genetic trait point to kidney disease. 19:28:30 Maximum allowable contrast dose (3.7 X eGFR X 0.75)250 ml. ::33 Sedation plan: IV Moderate Sedation Medication:Versed, Fentanyl 19::41 Use device set Acist 19:28:43 ACIST Hand Control (90568) opened to sterile field. 19::43 ACIST Syringe (30392) opened to sterile field. 19::44 ACIST Manifold (26005) opened to sterile field. 19:28:59 SHEATH 6FR [place] (YXO949) opened to sterile field. 19:29:02 EMERALD Guide Wire (502-950) opened to sterile field. 19:29:21 GUIDE 6FR XBLAD 3.5 catheter ([id number]) opened to sterile field. 19:29:21 GUIDE 6FR AR 2.0 catheter (UT1MI13) opened to sterile field. 19:30:11 LV hemodynamics recorded. 19:30:26 Oxygen 2 l/min etCO2 Nasal cannula was administered by Nahid Bell RN; Per physician; ::33 Heparin Flush Bag (1000units/500ml NS) 2 bags added to field was administered by Nahid Bell RN; used for procedure; 19:30:42 0.9% NaCl 100 ml/hr I.V. was administered by Nahid Bell RN; Per physician; 19:30:49 Fentanyl 50 mcg I.V. was administered by Nahid Bell RN; for sedation; 19:30:50 Lidocaine 2% 20ml vial added to field was administered by Nahid Bell RN; for local anesthetic; 19:30:56 Versed 1 mg I.V. was administered by Nahid Bell RN; for sedation; 19:31:21 Plavix 75 mg P.O. was administered by Nahid Bell RN; for antiplatelet therapy; 19:31:55 Procedure started. 19:31:59 Local anesthetic to right femoral artery with Lidocaine 2% by Enrique Frankel MD.INITIAL ACCESS ONLY 19:32:07 A 6 Fr Short sheath was inserted into the Right Femoral artery 19:32:45 A DIAGNOSTIC Pigtail 5Fr catheter ([id number]) was advanced over the wire and used for LV Angiography. 19:34:12 LV gram done using WALTON 19:34:14 Injector settings: Ml/sec: 5, Volume: 15, 19:34:18 EF : 55 % 19:34:22 Catheter removed. 19:34:36 6 Fr AR 2 guide catheter was inserted over the wire 19:36:19 SVG to Circ angiography performed. 19:36:23 SVG to RCA angiography performed. 19:36:29 Catheter removed. 19:36:30 Proceeding to intervention. 19:36:43 INFLATOR Merit BasixCompak (KR5758) opened to sterile field. 19:36:43 CHOICE PT Extra Support 182cm wire ([id number]) opened to sterile field. 19:37:47 Heparin Bolus 4000 units I.V. was administered by Nahid Bell RN; for anticoagulation; 19:37:52 Fentanyl 50 mcg I.V. was administered by Nahid Bell RN; for sedation; 19:37:57 Versed 1 mg I.V. was administered by Nahid Bell RN; for sedation; 19:38:15 Place stent Inflation Number: 1 A JAN Rx 4.0 x 38 stent ([id number]) was prepped and advanced across the Aorta Left -> Mid RCA 90. The stent was deployed at 23 SALAZAR for 0:10 (min:sec) . 19:38:25 Inflation number: 2 The stent balloon was then re-inflated across the Aorta Left -> Mid RCA to 23 SALAZAR for 0:10 (min:sec) . 19:38:31 ACC Pre-intervention CHESTER Flow is 3. 19:38:41 Pre PCI Site: Vein Graft mRCA has 90% stenosis. 19:38:50 Post PCI Site: Vein Graft mRCA has 0% stenosis. 19:38:56 ACC Post-intervention CHESTER Flow is 3. 19:39:51 Wire redirected to SVG-LCX. 19:40:04 Stent catheter was removed intact over wire. 19:41:51 Inflate balloon Inflation number: 1 A EUPHORA 2.0 x 30 Balloon ([id number]) was prepped and advanced across the Aorta Left -> Mid CX , then inflated to 17 SALAZAR for 0:10 (min:sec) . 19:41:56 Inflation number: 2 The EUPHORA 2.0 x 30 Balloon ([id number]) was reinflated across the Aorta Left -> Mid CX , to 19 SALAZAR for 0:10 (min:sec) . 19:42:16 Inflation number: 3 The EUPHORA 2.0 x 30 Balloon ([id number]) was reinflated across the Aorta Left -> Mid CX , to 21 SALAZAR for 0:10 (min:sec) . 19:42:34 Balloon removed over the wire. 19:42:35 ACT drawn and resulted at OOR seconds. (normal therapeutic range 180-240 seconds). 19:44:17 Place stent Inflation Number: 4 A JAN RX 3.5 x 15 stent ([id number]) was prepped and advanced across the Aorta Left -> Mid CX 95. The stent was deployed at 11 SALAZAR for 0:10 (min:sec) . 19:45:07 Stent catheter was removed intact over wire. 19:45:13 Wire removed. 19:45:14 Guide catheter removed. 19:45:23 6 Fr XBLAD 3.5 guide catheter was inserted over the wire 19:45:34 CHOICE PT wire advanced. 19:48:14 Place stent Inflation Number: 1 A JAN RX 2.5 x 15 stent ([id number]) was prepped and advanced across the Mid CX 99. The stent was deployed at 13 SALAZAR for 0:10 (min:sec) . 19:50:40 Wire removed. 19:50:40 Stent catheter was removed intact over wire. 19:50:41 ACT drawn and resulted at 219 seconds. (normal therapeutic range 180-240 seconds). 19:50:41 Guide catheter removed. 19:50:49 EXOSEAL 6Fr (EX600) opened to sterile field. 19:50:57 Sheath removed intact; hemostasis achieved with Exoseal to the Right Femoral artery. 19:51:09 Procedure ended.(Physican Out) 19:51:37 Fluoroscopy time 05.80 minutes. 19:51:41 Fluoroscopy dose: 715 mGy 19:51:41 Flurop Dose total: 715 19:51:46 Dose Area Product 98123 mGy/cm. 19:51:50 Contrast amount:Isovue 300 126ml. 19:51:52 Sharps counted by scrub and verified by R.N. 19:51:53 Insertion/operative site no bleeding no hematoma. 19:51:57 Post-op/insertion site Right Femoral artery dressed using a 4 x 4 and Tegaderm. 19:51:59 Post right femoral artery:stable 19:52:03 Post procedure rhythm: unchanged. 19:52:05 Estimated blood loss: 5 ml 19:52:07 Patient needs reinforcement of post procedure teaching. 19:52:07 Post procedure instruction explained to patient.Patient verbalizes understanding. 19:52:50 Procedure type changed to Cath procedure, Diagnostic procedure, LHC, LHC w/Coronaries w/Grafts, Sedation Charges, Moderate Sedation up to 30 minutes, PCI procedure, Coronary Stent, Coronary Stent Initial, AMI/SVG/PROPERTY MANAGEMENT INTERN PTCA or Stent, SVG-BMS/BONNIE Initial 19:52:55 Procedure and supply charges have been captured, reviewed, submitted and are correct. 19:52:59 Procedure Complication : No complications 19:53:01 See physician's report for complete and final results. 19:53:01 Vital chart was stopped 19:53:05 Report given to Med II. 19:53:07 Patient transfered to Med II with Stretcher. 19:53:10 Full Disclosure recording stopped 19:53:10 Procedure ended. 19:53:16 ACC-PCI Only Patient was given prescriptions, or instructed by Enrique Frankel MD to start/continue the following medications upon discharge: Plavix 19:55:34 End room use (Document Last) Intervention Summary Intervention Notes Time ActionType Lesion and Equipment Used Action# Pressure Duration Attributes 19:38:15 Place stent Aorta Left JAN Rx 4.0 x 1 23 00:10 -> Mid RCA 38 stent ([id number]) 19:38:25 Reinflate Aorta Left JAN Rx 4.0 x 2 23 00:10 stent -> Mid RCA 38 stent balloon ([id number]) 19:41:51 Inflate Aorta Left EUPHORA 2.0 x 1 17 00:10 balloon -> Mid CX 30 Balloon ([id number]) 19:41:56 Reinflate Aorta Left EUPHORA 2.0 x 2 19 00:10 balloon -> Mid CX 30 Balloon ([id number]) 19:42:16 Reinflate Aorta Left EUPHORA 2.0 x 3 21 00:10 balloon -> Mid CX 30 Balloon ([id number]) 19:44:17 Place stent Aorta Left JAN RX 3.5 x 4 11 00:10 -> Mid CX 15 stent ([id number]) 19:48:14 Place stent Mid CX JAN RX 2.5 x 1 13 00:10 15 stent ([id number]) Device Usage Item Name Manufacture Quantity Catalog Number Hospital Part Current M inimal Lot# / Charge Number Stock Stock Serial# Code ACIST Syringe Acist 1 97426 733329 968294 582419 2 0 (71118) Medical Systems Inc ACIST Hand Acist 1 10131 491245 369325 095201 5 Control Medical (90087) Systems Inc ACIST Manifold Acist 1 63382 002027 832678 540398 5 (86418) Medical Systems Inc SHEATH 6FR Terumo 1 JUE716 756956 494302 328115 4 0 [place] (TWB873) EMERALD Guide Cardinal 1 502-455 544813 109641 034704 5 Wire (502-455) Health GUIDE 6FR AR Medtronic 1 [id number] 541488 77429 781598 1 2.0 catheter (JP0VV70) GUIDE 6FR Cardinal 1 61817609 583843 756456 669967 1 0 XBLAD 3.5 Health catheter ([id number]) DIAGNOSTIC Cardinal 1 [id number] 220222 189139 806849 5 Pigtail 5Fr Health catheter (611305Y) CHOICE PT Twilight 1 [id number] 843151 584139 820943 5 Extra Support Scientific 182cm wire ([id number]) INFLATOR Merit Merit 1 HG5969 628182 799107 881205 1 5 [employer] (NW5104) JAN Rx 4.0 x Medtronic 1 [id number] 583264 1188806 890200 5 [id number] 38 stent ([id number]) EUPHORA 2.0 x Medtronic 1 [id number] 200824 930319 427880 5 [id number] 30 Balloon ([id number]) JAN RX 3.5 x Medtronic 1 [id number] 423735 0190237 164132 5 [id number] 15 stent ([id number]) JAN RX 2.5 x Medtronic 1 [id number] 702287 0640675 951004 5 [id number] 15 stent ([id number]) EXOSEAL 6Fr Cardinal 1 EX600 373211 317182 794281 1 0 (EX600) Health Signature Audit Bedias Stage Time Signature Unsigned Intra-Procedure 07/13/2019 Eugenia Burch RT(R) 7:56:48 PM RT(R) 07/13/2019 8:00:01 PM Intra-Procedure 07/13/2019 Eugenia Burch 8:00:53 PM RT(R) Signatures Monitor : Eugenia Burch RT Signature : Date : Time : Nurse : Nahid Bell RN Signature : Date : Time : Performing Physician : Signature : Enrique Frankel MD Date : Time : [address] [place] [address]
[~2019-07-13 13:26] MED LIST: BUTALB-APAP-CA1 EACH PO; GEMFIBROZIL600 MG PO; GLUCOPHAGE1000 MG PO; LEVOFLOXACIN500 MG PO; LISINOPRIL10 MG PO; MECLIZINE HCL25 MG PO; PLAVIX75 MG PO; PROTONIX40 MG PO; PROZAC20 MG PO; ZYRTEC10 MG PO
[2019-07-13 14:02] LABS: BASOPHILS 0.2 % (0-2); EOSINOPHILS 2.7 % (0-7); HEMOGLOBIN 12.8 g/dL (12-16); IMMATURE GRANULOCYTES 0.2 % (0-5); MCH 28.6 pg (26.0-34.0); MCHC 35.6 g/dL (31.0-37.0); MCV 80.4 fL (80.0-100.0); MEAN PLATELET VOLUME 9.9 fL (7.4-10.4); NEUTROPHILS 61.9 % (40-80); PLATELET COUNT 149 10x3/uL (130-400); RBC 4.48 10x6/uL (4.00-5.40); RDW 12.8 % (11.5-14.5); WBC 6.3 10x3/uL (4.8-10.8)
[2019-07-13 14:16] LABS: INR 1.01 (0.85-1.17); PROTIME 12.8 SECONDS (11.6-15.0)
[2019-07-13 14:21] LABS: ALBUMIN 3.7 g/dL (3.4-5.0); ALKALINE PHOSPHATASE 145 U/L (46-116); ALT (SGPT) 23 U/L (10-68); CALC OSMOLALITY 291 mosm/kg (275-300); CALCIUM 9.5 mg/dL (8.5-10.1); CARBON DIOXIDE 28.6 mmol/L (21.0-32.0); CHLORIDE - SERUM 102 mmol/L (98-107); CREATININE - SERUM 0.7 mg/dL (0.6-1.3); GLUCOSE 335 mg/dL (74-106); POTASSIUM - SERUM 4.2 mmol/L (3.5-5.1); PROTEIN - SERUM 7.4 g/dL (6.4-8.2); SODIUM 139 mmol/L (136-145); UREA NITROGEN 15 mg/dL (7-18); eGFR NON AFRICAN AMERICAN > 90 mL/min (90-120)
[2019-07-13 14:40] LABS: CKMB 0.8 U/L (0.0-3.6); CREATINE KINASE 49 UL (21-215); MAGNESIUM - SERUM 1.7 mg/dL (1.8-2.4); TROPONIN-I < 0.017 ng/mL (0.000-0.060)
--- NOTE | 2019-07-13 16:58 | NUR ---
ARRIVE TO ROOM VIA WHEELCHAIR FROM ER. AMBULATES TO BED. GAIT STEADY. CONSENTS FOR CHEMICAL STRENGTH TESTER SIGNED ON CHART. O2 @ 2L. REPORTS CHEST AND EAR PAIN 04/05. PAIN MEDICATION GIVEN IN ER BEFORE ARRIVE TO UNIT. ALERT AND ORIENTED X4. UP AD BENNIE. REFUSE SCDs. CONTINUE ADMISSION PROCESS AND SAFETY PRECAUTIONS.
[2019-07-13 17:16] VITALS: BP 156/92; Ht 162.6 cm; Wt 77.3 kg
--- NOTE | 2019-07-13 19:16 | NUR ---
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
[2019-07-13 21:01] VITALS: BP 145/79
--- NOTE | 2019-07-13 21:25 | NUR ---
BS 215, COVERED PER S/S.
--- NOTE | 2019-07-13 23:44 | NUR ---
UP WITH ASSIST TO BR.
[2019-07-14] VITALS: BP 139/82
[2019-07-14 04:00] VITALS: BP 124/75
[2019-07-14 04:26] LABS: BASOPHILS 0.4 % (0-2); EOSINOPHILS 3.8 % (0-7); HEMATOCRIT 34.5 % (36.0-48.0); IMMATURE GRANULOCYTES 0.2 % (0-5); LYMPHOCYTES 42.1 % (15-50); MCHC 34.8 g/dL (31.0-37.0); MCV 80.4 fL (80.0-100.0); MEAN PLATELET VOLUME 9.9 fL (7.4-10.4); MONOCYTES 8.5 % (2-11); PLATELET COUNT 142 10x3/uL (130-400); RBC 4.29 10x6/uL (4.00-5.40); RDW 12.7 % (11.5-14.5)
[2019-07-14 05:06] LABS: ALBUMIN 2.8 g/dL (3.4-5.0); ALKALINE PHOSPHATASE 105 U/L (46-116); ALT (SGPT) 21 U/L (10-68); CALCIUM 8.8 mg/dL (8.5-10.1); CARBON DIOXIDE 28.2 mmol/L (21.0-32.0); CHLORIDE - SERUM 106 mmol/L (98-107); CKMB 0.7 U/L (0.0-3.6); CREATINE KINASE 32 UL (21-215); POTASSIUM - SERUM 3.9 mmol/L (3.5-5.1); PROTEIN - SERUM 6.2 g/dL (6.4-8.2); SODIUM 140 mmol/L (136-145); TROPONIN-I < 0.017 ng/mL (0.000-0.060)
[2019-07-14 05:07] LABS: CALC OSMOLALITY 285 mosm/kg (275-300); CREATININE - SERUM 0.5 mg/dL (0.6-1.3); GLUCOSE 240 mg/dL (74-106); UREA NITROGEN 11 mg/dL (7-18); eGFR NON AFRICAN AMERICAN > 90 mL/min (90-120)
--- NOTE | 2019-07-14 07:57 | NUR ---
ASSESSMENT DONE. DENIES NEEDS
[2019-07-14 08:00] VITALS: BP 153/73
[2019-07-14 09:09] LABS: CKMB 0.6 U/L (0.0-3.6); CREATINE KINASE 35 UL (21-215); TROPONIN-I < 0.017 ng/mL (0.000-0.060)
--- NOTE | 2019-07-14 09:46 | NUR ---
I have reviewed this patient and I concur with the Shift Assessment completed by the Licensed Practical Nurse today this shift.
[2019-07-14] MEDS ORDERED: ASPIRIN81 MG PO (10:49)
--- NOTE | 2019-07-14 11:28 | NUR ---
DC GIVEN TO PT
--- NOTE | 2019-07-14 11:57 | NUR ---
DC HOME PER PERSONAL CAR
--- NOTE | 2019-07-20 13:38 | OP ---
PATIENT NAME: MINGO CORDERO MEDICAL RECORD: [id number] :60 LOCATION:D.OPS ADMISSION DATE: SURGEON: ZEE MARTINEZ MD DATE OF OPERATION: 07/13/2019 PROCEDURES: 1. PTCA stent vein graft to RCA. 2. PTCA stent left circumflex. 3. PTCA stent vein graft to LAD. 4. PTCA LAD after the patent vein graft. 5. Left heart catheterization. 6. Selective coronary angiography. 7. Left ventriculogram. 8. Vein graft angiography. INDICATION: Unstable angina and coronary artery disease. PROCEDURE IN DETAIL: After informed consent was obtained and after a detailed description of the risks, benefits as well as alternative therapies, the patient elected to proceed with angiogram and angioplasty. The right femoral area was prepped and draped in normal sterile fashion. Right femoral artery was cannulated via modified Seldinger technique with placement of 6-Khmer sheath. All catheters exchanged through this sheath. FINDINGS: The left ventriculogram was performed in standard 30-degree WALTON view reveals preserved cardiac wall motion, ejection fraction 50% to 55%. SELECTIVE CORONARY ANGIOGRAPHY: 1. Left main is with no significant angiographic disease. 2. Left anterior descending is totally occluded. 3. Vein graft to the LAD is patent. There is an echogenic structure, it is plaque versus thrombus at the distal anastomosis of this vein graft. After that, the LAD has previously placed stents that are 99% stenosed. The vein graft itself is over 80% stenosis at the area of the distal anastomosis. 4. Left circumflex has previously placed stent that is widely patent. There is 90% stenosis after this. 5. Right coronary is totally occluded. 6. Vein graft to the right coronary is patent. There is 90% stenosis in the mid shaft of the vein graft that is in-stent restenosis. PTCA STENT OF THE VEIN GRAFT TO THE RCA: The stent used was a 4.0 x 38 mm Gm taken to 23 atmospheres. Result was 0% residual stenosis throughout. PTCA STENT OF THE LEFT CIRCUMFLEX: The stent used was a 2.5 x 15 mm Tibbie. Result was 0% residual stenosis throughout. PTCA STENT OF THE VEIN GRAFT TO THE LAD: The vein graft was addressed with a 3.5 x 15 mm Tibbie. The LAD itself with a 2.0 x 30 mm balloon taken to 21 atmospheres. Result was 0% residual stenosis. OVERALL IMPRESSION: Successful percutaneous transluminal angioplasty stent of the vein graft to the RCA, vein graft to the LAD and [place] circumflex all going from 80% to 90% initial stenosis to 0% residual. TRANSINT:[id number] Voice Confirmation ID: [id number] DOCUMENT ID: [id number] OPERATIVE REPORT [id number] MINGO CORDERO, ZEE DELANEY at 1338 CC: [id number] DICTATION DATE: 07/13/191953 INSPECTOR EXPERIMENTAL ASSEMBLY: 07/13/192144 DEP CLI 07/14/19 [id number] [place] [address]
--- NOTE | 2019-07-20 13:38 | HP ---
PATIENT: MINGO ARELLANO MEDICAL RECORD: [id number] ACCOUNT: [id number] LOCATION:[facility] : 60 ADMISSION DATE: 07/13/19 PCP: No PCP HISTORY AND PHYSICAL EXAMINATION DIAGNOSES: 1. Unstable angina class IV. 2. Hypertension. 3. Hyperlipidemia. HISTORY OF PRESENT ILLNESS: Mrs. Arellano presents with unstable anginal symptomatology. She is class IV unstable angina. Her last cardiac intervention was by Dr. Marquis in 2018. At that time, he did balloon angioplasty for in-stent restenosis of a vein graft to the RCA. She had diffuse in-stent restenosis of the LAD; however, this was not intervened. Her angina is now worsened and was taking multiple sublingual nitro. She is on a nitropatch as well as lisinopril. Heart rates in the 60s, her systolic blood pressures in the 120-130 range. She continues to have class IV anginal symptomatology. She has hypertension, hyperlipidemia, family history of coronary artery disease, and the bypass surgery and cardiac interventions as above. PHYSICAL EXAMINATION: CONSTITUTIONAL/GENERAL APPEARANCE: Well nourished, well developed, appears stated age. EYES: Lids and conjunctivae noninjected. No discharge. No pallor. ENT: Lips within normal limit. No cyanosis. No pallor. NECK: Carotid arteries, bilateral normal upstroke. No bruits. No thrills. No jugular venous pressure or distention. CERVICAL LYMPH NODES: Nontender. Nonenlarged. THYROID: Not enlarged. No nodules. CARDIOVASCULAR: Precordial exam, nondisplaced. No heaves or pericardial thrills. Rate and rhythm, regular. Heart sounds, normal S1, normal S2. No S3, no gallop, no rub. Systolic murmur, not heard. Diastolic murmur, not heard. RESPIRATORY: Respiratory effort, unlabored. Normal curvature. No thoracic deformity. No chest wall tenderness. Percussion, resonant. Auscultation, clear. No wheezes, no rales, no rhonchi. ABDOMEN: Soft, nondistended, nontender. No abdominal pain, no vomiting and normal appetite. MUSCULOSKELETAL: No joint tenderness, normal gait, normal tone. SKIN: Warm and dry. OVERALL IMPRESSION: Unstable angina. We will proceed with coronary angiography. Further care depends upon findings of the angiography. TRANSINT:[id number] Voice Confirmation ID: [id number] DOCUMENT ID: [id number] HISTORY AND PHYSICAL [id number] MINGO ARELLANO JEFFREY MD at 1338 CC: [id number] DICTATION DATE: 07/13/19 1610 GASTROENTEROLOGY PROFESSOR: 07/13/19 1743 DEP CLI 07/14/19 [facility] [address] [id number]
== END 2019-07-14 11:58 | disposition home or self-care (01) ==
LOC: OBSVTIME → D.OPS 13:26 → D.ER 13:26 → D.M2 15:03 → D.ER 15:03 → OBSVTIME 15:11 → EDSTATUS 15:40 → D.ER 16:31 → D.M2 07-14 11:58 → D.OPS 07-14 11:58
PROVIDERS: Family Medicine; ATTEND Internal Medicine Interventional Cardiology
DX: I25.110 Atherosclerotic heart disease of native coronary artery with unstable angina pectoris (principal); I10 Essential (primary) hypertension; E78.5 Hyperlipidemia, unspecified; Z95.1 Presence of aortocoronary bypass graft; E11.9 Type 2 diabetes mellitus without complications
CPT/HCPCS: 93459; C9604; C9605; C9600

== ENCOUNTER → 2019-08-27 09:43 | Outpatient (CLI) | payer MEDICARE, MEDICAID ==
[2019-07-13 17:16] VITALS: BMI 29.2
[~2019-08-27 09:43] MED LIST changes: +ASPIRIN81 MG PO; +DILAUDID4 MG PO; +LIPITOR40 MG PO; +NEURONTIN600 MG PO; +TRAZODONE HCL150 MG PO
--- NOTE | 2019-09-01 13:38 | EC ---
PATIENT:MINGO CORDERO DATE OF SERVICE: 08/27/19 SEX: F MEDICAL RECORD: [id number] DATE OF : 60 LOCATION:[facility] [place] AGE OF PATIENT: 59 ADMISSION DATE: 08/27/19 REFERRING PHYSICIAN: INTERPRETING PHYSICIAN: ALANA LOPEZ MD ECHOCARDIOGRAM REPORT ECHO CHARGES 4 ECHO COMPLETE Date: 08/27/19 CLINICAL DIAGNOSIS: SILVA/PALPITATIONS/NEAR SYNCOPE H/O CAD/HTN ECHOCARDIOGRAPHIC MEASUREMENTS (adult normal given) AC root (d.<3.7cm) 3.4 cm LV Septum d (<1.2 cm> 1.2 cm Valve Excursion 1.8 cm LV Septum (systole) 1.4 cm Left Atria (s.<4.0cm> 3.3 cm LVPW d(<1.2cm) 1.1 cm RV (d.<2.3cm) 2.6 cm LVPW (sytole) 1.5 cm LV diastole(<5.6CM) 5.2 cm MV E-F(>70mm/sec) cm LV systole 3.3 cm LVOT Diameter 1.9 cm MV exc.(>10mm) cm Est.ejection fraction (50-75%) % DOPPLER: LVIT cm/sec A 81.0 cm/sec E 92.0 cm/sec LA cm/sec RVSP 36.0 mmHg LVOT 91.0 cm/sec AOP1/2T m/s Asc. Ao 159 cm/sec RVOT 59.0 cm/sec RA cm/sec PA 88.0 cm/sec AV Gradient Peak 10.2 mmHg AV Mean 5.7 mmHg AV Area 1.6 cm MV Gradient Peak 4.0 mmHg MV Mean 1.5 mmHg MV Area cm COMMENTS: OP - HC Grill Chef: 1 RAVINDRA EVERETTOE Patient Intake Coordinator: 3 Dr. Marquis TAPE# PACS Pericardial Effusion N DATE OF SERVICE: Adequate 2D, color flow, spectral Doppler, and M-mode. Borderline LVH. LV internal dimension is normal. Wall motion is normal. EF is greater than or equal to 55%. Aortic valve is tricuspid. No evidence of stenosis by Doppler interrogation. Left atrium is normal at 3.3 cm. Mitral valve shows no prolapse. Trace MR. Right-sided chambers grossly normal. Trace TR. TRANSINT:[id number] Voice Confirmation ID: [id number] DOCUMENT ID: [id number] ECHOCARDIOGRAM REPORT [id number] MINGO CORDERO,ALANA Moon MD at 1338 CC: [id number] DICTATION DATE: 08/30/19 1247 ARCHIVES DIRECTOR: 08/30/19 1311 DEP CLI 08/27/19 [place] [id number] [place] [id number]
== END ==
LOC: D.HCCECHO 09:43
PROVIDERS: ATTEND Internal Medicine Interventional Cardiology
DX: I25.10 Atherosclerotic heart disease of native coronary artery without angina pectoris (principal)

== ENCOUNTER 2019-08-31 09:47 | Emergency (ER) | payer MEDICARE ==
[~2019-08-31] VITALS: Ht 162.6 cm; Wt 72.7 kg
[~2019-08-31 09:47] MED LIST changes: -DILAUDID4 MG PO; -LIPITOR40 MG PO; -NEURONTIN600 MG PO; -TRAZODONE HCL150 MG PO
[2019-08-31 09:49] VITALS: Ht 162.6 cm; Wt 72.7 kg
[2019-08-31] MEDS ORDERED: DILAUDID4 MG PO (10:14)
[2019-08-31 10:26] LABS: BASOPHILS 0.3 % (0-2); EOSINOPHILS 3.4 % (0-7); HEMATOCRIT 39.7 % (36.0-48.0); HEMOGLOBIN 13.6 g/dL (12-16); IMMATURE GRANULOCYTES 0.1 % (0-5); LYMPHOCYTES 28.2 % (15-50); MCHC 34.3 g/dL (31.0-37.0); MCV 81.7 fL (80.0-100.0); MEAN PLATELET VOLUME 9.7 fL (7.4-10.4); MONOCYTES 7.8 % (2-11); NEUTROPHILS 60.2 % (40-80); RBC 4.86 10x6/uL (4.00-5.40); RDW 12.6 % (11.5-14.5); WBC 7.1 10x3/uL (4.8-10.8)
[2019-08-31 10:27] LABS: PLATELET COUNT 209 10x3/uL (130-400)
[2019-08-31 10:43] LABS: ALBUMIN 4.1 g/dL (3.4-5.0); ALKALINE PHOSPHATASE 148 U/L (46-116); ALT (SGPT) 19 U/L (10-68); BILIRUBIN - TOTAL 0.77 mg/dL (0.2-1.3); CALC OSMOLALITY 288 mosm/kg (275-300); CALCIUM 9.7 mg/dL (8.5-10.1); CHLORIDE - SERUM 99 mmol/L (98-107); CKMB 1.2 U/L (0.0-3.6); CREATINE KINASE 89 UL (21-215); CREATININE - SERUM 0.7 mg/dL (0.6-1.3); POTASSIUM - SERUM 3.7 mmol/L (3.5-5.1); PRO BNP 36 pg/mL (0-125); PROTEIN - SERUM 8.3 g/dL (6.4-8.2); SODIUM 137 mmol/L (136-145); TROPONIN-I < 0.017 ng/mL (0.000-0.060); UREA NITROGEN 8 mg/dL (7-18); eGFR NON AFRICAN AMERICAN > 90 mL/min (90-120)
[2019-08-31 10:47] LABS: GLUCOSE 402 mg/dL (74-106)
[2019-08-31 12:48] VITALS: BP 142/89
[2019-09-01] MEDS ORDERED: TRAZODONE HCL150 MG PO (08:59)
[2019-09-01] MEDS ORDERED: LIPITOR40 MG PO (09:00)
[2019-09-01] MEDS ORDERED: NEURONTIN600 MG PO (09:00)
--- NOTE | 2019-09-01 14:08 | CN ---
PATIENT NAME:MINGO ARELLANO MEDICAL RECORD: [id number] : 60 LOCATION:D.ER ADMIT DATE: ACCOUNT: [id number] CONSULTING PHYSICIAN: ZEE MARTINEZ MD REFERRING PHYSICIAN: JACKIE ANDRES MD DATE OF CONSULTATION: 08/31/2019 DIAGNOSES: 1. Unstable angina. 2. Coronary artery disease. 3. Previous coronary bypass graft surgery. 4. Previous multivessel percutaneous transluminal coronary angioplasty stent. 5. Family history of coronary artery disease. 6. Hypertension. 7. Hyperlipidemia. 8. Noninsulin dependent diabetes. HISTORY OF PRESENT ILLNESS: Mrs. Arellano is status post multivessel PTCA stent approximately 2 months ago, she did well until just recently. She has had a significant increase in her anginal chest discomfort over the past 2 days. She is taking her Plavix. She is having class IV rest angina. Her EKG; however, is with no acute changes, only nonspecific ST-T abnormalities. Her chest pain is like that of her previous angina. It is a dull aching heavy sensation across the anterior chest. Her heart rate and blood pressure are up, systolic being 150, pulse of 88. PHYSICAL EXAMINATION: CONSTITUTIONAL/GENERAL APPEARANCE: Well nourished, well developed, appears stated age. EYES: Lids and conjunctivae noninjected. No discharge. No pallor. ENT: Lips within normal limit. No cyanosis. No pallor. NECK: Carotid arteries, bilateral normal upstroke. No bruits. No thrills. No jugular venous pressure or distention. CERVICAL LYMPH NODES: Nontender. Nonenlarged. THYROID: Not enlarged. No nodules. CARDIOVASCULAR: Precordial exam, nondisplaced. No heaves or pericardial thrills. Rate and rhythm, regular. Heart sounds, normal S1, normal S2. No S3, no gallop, no rub. Systolic murmur, not heard. Diastolic murmur, not heard. RESPIRATORY: Respiratory effort, unlabored. Normal curvature. No thoracic deformity. No chest wall tenderness. Percussion, resonant. Auscultation, clear. No wheezes, no rales, no rhonchi. ABDOMEN: Soft, nondistended, nontender. No abdominal pain, no vomiting and normal appetite. MUSCULOSKELETAL: No joint tenderness, normal gait, normal tone. SKIN: Warm and dry. REVIEW OF SYSTEMS: The patient reports easy bruising but reports no swollen glands. The patient reports no fever, no night sweats, no significant weight gain, no significant weight loss. No significant exercise tolerance. The patient reports no dry eyes, no irritation, no vision change. Patient reports no difficulty hearing and no ear pain. Patient reports no frequent nose bleeds or nose and sinus problems. Patient reports on arm pain on exertion. No shortness of breath while lying down. No history of heart murmur. Patient reports no cough, no wheezing or coughing up blood. Patient reports no abdominal pain, no vomiting. Normal appetite. No diarrhea and not vomiting CONSULT REPORT [id number] MINGO ARELLANO blood. No nausea and no constipation. Patient reports no incontinence. No difficulty urinating. No hematuria. No increased frequency. Patient reports no muscle aches. No weakness, no arthralgias, no back pain. No swelling of the extremities. Patient reports no abnormal mole, no jaundice, no rashes. Reports no loss of consciousness. No weakness and no numbness. No seizures, dizziness, or headaches. The patient reports no depression, no sleep disturbance, feeling safe in a relationship and no alcohol abuse. Patient reports on fatigue. Reports no runny nose or sinus pressure. No itching, no hives, and no frequent sneezing. FAMILY HISTORY: Positive for coronary artery disease and diabetes. SOCIAL HISTORY: She lives in the [facility] area. She currently does not work. She denies smoking or ETOH. OVERALL IMPRESSION: Unstable anginal symptomatology. At this time, we will maximize medications with Imdur as well as metoprolol. If she continues to have discomfort, we will proceed with coronary angiography. TRANSINT:[id number] Voice Confirmation ID: [id number] DOCUMENT ID: [id number] ZEE MARTINEZ MD at 1408 CC: [id number] DICTATION DATE: 08/31/19 1152 AGRONOMY PROFESSOR: 08/31/19 1210 DEP ER 08/31/[address] [address]
== END 2019-08-31 12:48 | disposition home or self-care (01) ==
LOC: D.ER 09:47
PROVIDERS: Emergency Medicine
DX: R07.9 Chest pain, unspecified (principal); I25.10 Atherosclerotic heart disease of native coronary artery without angina pectoris; E11.9 Type 2 diabetes mellitus without complications; I10 Essential (primary) hypertension; F32.9 Major depressive disorder, single episode, unspecified

== ENCOUNTER → 2019-09-01 08:20 | Outpatient (CLI) | payer MEDICARE ==
[~2019-09-01] VITALS: Ht 162.6 cm; Wt 72.7 kg
--- NOTE | ~2019-09-01 | HEMODYNAMI ---
PATIENT:MINGO CORDERO MEDICAL RECORD: [id number] : 60 LOCATION:[facility] ADMISSION DATE: 09/01/19 Generatedon:09/01/201911:10 Patient name: MINGO CORDERO Patient #: [id number] SSN: [id number] : 1960 Date of study: 09/01/2019 Page: Of Hemodynamic Procedure Report Patient Data Patient Demographics Procedure consent was obtained First Name: MINGO Gender: Female Last Name: GIL : 1960 [facility] Initial: AIDEE Age: 59 year(s) Patient #: [id number] Race: SSN: [id number] Additional ID: [id number] Contact details Address: [address] [place] [address] State: [place] City: [place] Zip code: [address] Past Medical History Allergies Allergen Reaction Date Comments Reported Other allergy 04/15/2019 SULFA Admission Admission Data Admission Date: 09/01/2019 Admission Time: 8:20 Arrival Date: 09/01/2019 Arrival Time: 10:00 Admit Source: Other Insurance Payor: Medicare, Medicaid [facility] #: [id number] Height (in.): 64.17 BSA: 1.79 (m2) Height (cm.): 163 BMI: 27.48 (kg/m2) Weight (lbs.): 160.94 Weight (kg.): 73 Lab Results Lab Result Date: 09/01/2019 Lab Result Time: 0:00 Biochemistry Name Units Result Min Max BUN mg/dl 8 --(*---)-- 7 18 Creatinine mg/dl 0.7 --(*---)-- 0.6 1.3 eGFR ml/min 90 --(*---)-- 90 120 NONAFRICAN CBC Name Units Result Min Max Hemoglobin g/dl 13.6 --(*---)-- 13.5 17.5 Procedure Procedure Types Cath Procedure Diagnostic Procedure LHC LHC w/Coronaries w/Grafts FFR/IVUS FFR Initial Sedation Charges Moderate Sedation up to 30 minutes PCI Procedure Coronary Stent Coronary Stent Initial Procedure Description Procedure Date Procedure Date: 09/01/2019 Procedure Start Time: 10:38 Procedure End Time: 11:04 Procedure Staff Name Function Eugenia Burch RT Monitor Enrique Frankel MD Performing Physician Larissa Mensah RT Scrub Checo Thomason RN Nurse Procedure Data Cath Procedure Fluoroscopy Diagnostic fluoroscopy Total fluoroscopy Time: 6.3 time: 6.3 min min Diagnostic fluoroscopy Total fluoroscopy dose: dose: 1014 mGy 1014 mGy Contrast Material Contrast Material Type Amount (ml) Isovue 300 142 Entry Location Entry Primary Successful Side Size Upsize Upsize Entry Closure Succes sful Closure Location (Fr) 1 (Fr) 2 (Fr) Remarks Device Remarks Femoral Right 5 Fr 6 Fr Exoseal artery Short Estimated blood loss: 5 ml Diagnostic catheters Device Type Used For End Catheter Placement MULTIPACK Pigtail 5 Fr LV Angiography catheter MULTIPACK JL 4.0 5Fr Left Coronary catheter Angiography DIAGNOSTIC AR2 MOD 5 Fr Multi-vessel catheter ([id number]) Angiography Procedure Complications No complications Procedure Medications Medication Administration Route Dosage 0.9% NaCl I.V. 100 ml/hr Oxygen etCO2 Nasal cannula 2 l/min Heparin Flush Bag added to field 2 bags (1000units/500ml NS) Lidocaine 2% added to field 20 Versed I.V. 2 mg Fentanyl I.V. 100 mcg Versed I.V. 2 mg Fentanyl I.V. 100 mcg Heparin Bolus I.V. 4000 units Hemodynamics Rest BSA: 1.79 (m2) HGB: 13.6 (g/dl) O2 Consumption: Estimated: 174.58 (ml/min) O2 Co nsumption indexed: Estimated:97.53 (ml/min/m) Heart Rate: 76 (bpm) Pressure Samples Time Site Value (mmHg) Purpose Heart Use Rate(bpm) 10:40 LV 132/54,56 Snapshot 75 Snapshots Pre Cath Intra NCS Post Cath Vital Signs Time Heart Resp SPO2 etCO2 NIBP (mmHg) Rhythm Pain Sedation Rate (ipm) (%) (mmHg) Status Level (bpm) 10:24:43 75 16 97 33.3 167/101(133) NSR 0 (11) 10(A) , No pain 10:29:01 75 18 97 37.1 169/100(139) NSR 0 (11) 10(A) , No pain 10:33:21 78 14 98 20.4 164/93(133) NSR 0 (11) 10(A) , No pain 10:37:37 77 14 98 34.9 163/102(145) NSR 0 (11) 10(A) , No pain 10:41:55 76 14 95 35.5 158/96(140) NSR 0 (11) 10(A) , No pain 10:46:09 76 12 97 37.8 157/99(136) NSR 0 (11) 10(A) , No pain 10:50:29 77 14 97 33.3 157/83(123) NSR 0 (11) 10(A) , No pain 10:54:47 76 19 97 31.8 136/84(114) NSR 0 (11) 10(A) , No pain 10:58:57 75 13 97 37.9 136/85(114) NSR 0 (11) 10(A) , No pain Medications Time Medication Route Dose Verified Delivered Reason Notes Effectiveness by by 10:28:07 0.9% NaCl I.V. 100 Checo Checo Per physician ml/hr Paddy Thomason RN RN 10:28:17 Oxygen etCO2 2 Checo Checo for low 02 sats Nasal l/min Paddy Thomason cannula RN RN 10:28:27 Heparin Flush added 2 Checo Checo used for Bag to bags Paddy Thomason procedure (1000units/500ml RN RN NS) 10:28:36 Lidocaine 2% added 20ml Checo Checo for local to vial Paddy Thomason anesthetic field BUSBY RN 10:31:45 Versed I.V. 2 mg Checo Checo for sedation Paddy Thomason RN RN 10:31:53 Fentanyl I.V. 100 Checo Checo for sedation mcg Paddy Thomason RN RN 10:41:03 Versed I.V. 2 mg Checo Checo for sedation Paddy Thomason RN RN 10:41:09 Fentanyl I.V. 100 Checo Checo for sedation mcg Paddy Thomason RN RN 10:50:30 Heparin Bolus I.V. 4000 Checo Checo for units Paddy Thomason anticoagulation RN international marketing executive Log Time Note 10:00:17 Larissa COYNE(R) sent for patient. Start room use. 10:19:58 Informed consent obtained and on chart 10:21:14 Arrival Date: 09/01/2019 10:00:00 AM 10:21:47 Admit Source: Other 10:22:01 Insurance Payor : Medicare, Medicaid 10:22:08 Patient Height : 64.17 inches 10:22:12 Patient Weight : 160.94 lbs 10:23:09 Lab Result : eGFR NONAFRICAN 90 ml/min 10:23: Lab Result : Hemoglobin 13.6 g/dl 10:: Lab Result : BUN 8 mg/dl 10:: Lab Result : Creatinine 0.7 mg/dl 10:23:27 Time tracking: Regular hours (M-F 7:00 - 5:00) 10:23:31 Plan of Care:Hemodynamics will remain stable., Cardiac rhythm will remain stable., Comfort level will be maintained., Respiratory function will remain adequate., Patient/ family verbilizes understanding of procedure., Procedure tolerated without complication., Recovers from procedure without complications.. 10:23:35 Patient received from Pre/Post Procedure Room to CCL 2 Alert and oriented. Tansferred to table in Supine position. 10:23:36 Correct patient and procedure confirmed by team. 10:23:36 Warm blankets applied, and jose ramon hugger turned on for patient comfort. 10:23:37 Vital chart was started 10:23:37 ECG and BP/O2 sat monitors applied to patient. 10:23:39 Baseline sample Acquired. 10:23:43 Rhythm: sinus rhythm 10:23:45 Full Disclosure recording started 10:23:48 H&P Date Dictated: 09/01/2019 Within 30 days and on chart., H&P Addendum completed by physician on day of procedure. (MUST COMPLETE FOR ALL OUTPATIENTS). 10:23:50 Pre-op teaching completed and patient verbalized understanding. 10:23:50 Pre-procedure instructions explained to patient. 10:23:52 Family in patients room. 10:23:54 Patient NPO since Midnight. 10:23:56 Is the patient allergic to Iodine/contrast media? No. 10:23:58 Was the patient premedicated? Yes 10:24:15 Is patient on blood thinner?Yes 10:24:18 ACC The patient was administered the following blood thiners within the last 24 hours: ACCPlavix 10:24:28 Patient diabetic? Yes. 10:24:38 If diabetic: On Metformin? Yes 10:24:42 If on Metformin: Last Dose? 08/30/2019 10:24:45 Previous problem with sedation/anesthesia? No ? 10:24:47 Snore? Yes 10:24:48 Sleep apnea? No 10:24:49 Opens mouth fully? Yes 10:24:49 Deviated septum? No 10:24:50 Sticks out tongue? Yes 10:24:51 Airway obstruction? No ? 10:24:56 Dentures? No ? 10:24:59 Pre procedure: right dorsailis pedis pulse 2+ Normal; easily identifiable; not easily obliterated 10:25:01 Pre procedure: left dorsailis pedis pulse 2+ Normal; easily identifiable; not easily obliterated 10:25:04 Patient pain scale 0/10 ?. 10:25:12 IV patent on arrival in left forearm with 0.9% NaCl at [facility]. 10:25:14 Lab results completed and on chart. 10:25:46 Stress Test: no; N/A ? 10:25:52 Risk of Mortality: ? 10:27:51 Risk of Mortality: 1.5 10:27:56 Risk of blood transfusion: 0.4 10:28:00 Risk of DESTINY: 0.9 10:28:07 0.9% NaCl 100 ml/hr I.V. was administered by Checo Thomason RN; Per physician; Verbal order read back and verified. 10:28:08 Right groin area was prepped with chlora-prep and draped in sterile fashion 10:28:09 Sharps counted by scrub and verified by R.N. 10:28:09 Alarms reviewed by R. N. 10:28:17 Oxygen 2 l/min etCO2 Nasal cannula was administered by Checo Thomason RN; for low 02 sats; Verbal order read back and verified. 10:28:27 Heparin Flush Bag (1000units/500ml NS) 2 bags added to field was administered by Checo Thomason RN; used for procedure; Verbal order read back and verified. 10:28:36 Lidocaine 2% 20ml vial added to field was administered by Checo Thomason RN; for local anesthetic; Verbal order read back and verified. 10:28:44 --------ALL STOP TIME OUT------ 10::44 Physician arrived 10::45 Final Timeout: patient, procedure, and site verified with staff and physician. All members of the team are in agreement. 10:28:47 Right groin site verified by team. 10:28:50 Fire Safety Assessment: A--An alcohol-based skin anteseptic being used preoperatively., C--Open oxygen or nitrous oxide is being used., D--An ESU, laser, or fiber-optic light is being used. 10:28:53 Physical assessment completed. ASA score P 2 - A patient with mild systemic disease as per Enrique Frankel MD. 10:28:56 1) 90+ Normal kidney functon but urine findings or structural abnormalities or genetic trait point to kidney disease. 10:28:59 Maximum allowable contrast dose (3.7 X eGFR X 0.75)250 ml. 10:29:09 Sedation plan: IV Moderate Sedation Medication:Versed, Fentanyl 10:31:45 Versed 2 mg I.V. was administered by Checo Thomason RN; for sedation; Verbal order read back and verified. 10:31:53 Fentanyl 100 mcg I.V. was administered by Checo Thomason RN; for sedation; Verbal order read back and verified. 10:34:32 Use device set Femoral Dx 10:34:33 Bag Decanter (2002S) opened to sterile field. 10:34:33 ACIST Syringe (05666) opened to sterile field. 10:34:34 Medline Cath Pack ([id number]) opened to sterile field. 10:34:35 DIAGNOSTIC Multipack 5Fr catheter set (UX0008) opened to sterile field. 10:34:35 ACIST Manifold (94985) opened to sterile field. 10:34:35 ACIST Hand Control (52803) opened to sterile field. 10:34:36 Tegaderm 4 x 4 (1626W) opened to sterile field. 10:34:37 EMERALD Guide Wire (774-610) opened to sterile field. 10:34:37 SHEATH 5FR [place] (FVS096) opened to sterile field. 10:34:48 Procedure started. 10:38:39 Local anesthetic to right femoral artery with Lidocaine 2% by Enrique Frankel MD.INITIAL ACCESS ONLY 10:39:07 A 5 Fr sheath was inserted into the Right Femoral artery 10:39:24 A MULTIPACK Pigtail 5 Fr catheter was advanced over the wire and used for LV Angiography. 10:39:41 Zero performed for pressure channel P1 10:39:47 Zero performed for pressure channel P1 10:39:54 Zero performed for pressure channel P1 10:40:02 Zero performed for pressure channel P1 10:40:33 LV hemodynamics recorded. 10:40:34 LV gram done using WALTON 10:40:39 Injector settings: Ml/sec: 5, Volume: 15, 10:40:43 EF : 60 % 10:40:50 Catheter removed. 10:40:55 A MULTIPACK JL 4.0 5Fr catheter was advanced over the wire and used for Left Coronary Angiography. 10:41:03 Versed 2 mg I.V. was administered by Checo Thomason RN; for sedation; Verbal order read back and verified. 10:41:09 Fentanyl 100 mcg I.V. was administered by Checo Thomason RN; for sedation; Verbal order read back and verified. 10:41:50 LCA angiography performed. 10:41:53 Injector settings: Ml/sec: 3, Volume: 6, 10:42:42 Catheter removed. 10:43:00 A DIAGNOSTIC AR2 MOD 5 Fr catheter ([id number]) was advanced over the wire and used for Multi-vessel Angiography. 10:43:04 SVG to RCA angiography performed. 10:44:05 SVG to Circ angiography performed. 10:45:34 Pre PCI Site: Vein Graft mCirc has 75% stenosis. 10:45:34 ACCDominant side:Co-Dominant 10:45:34 Catheter removed. 10:45:34 Sheath upsized to a 6 Fr Short. 10:45:35 Proceeding to intervention. 10:45:49 Stratton Verrata Plus pressure wire (15226D) opened to sterile field. 10:45:49 INFLATOR Merit BasixCompak (DH7814) opened to sterile field. 10:46:18 GUIDE 6FR AR 2.0 catheter (RO4VQ28) opened to sterile field. 10:47:39 6 Fr AR 2 guide catheter was inserted over the wire 10:47:46 FFR/IFR wire advanced. 10:49:34 Baseline FFR 1. 10:50:30 Heparin Bolus 4000 units I.V. was administered by Checo Thomason RN; for anticoagulation; Verbal order read back and verified. 10:50:54 Circ lesion measured at 0.79 with IFR 10:52:29 Place stent Inflation Number: 1 A JAN RX 2.5 x 18 stent ([id number]) was prepped and advanced across the Aorta Left -> Mid CX 75. The stent was deployed at 17 SALAZAR for 0:10 (min:sec) 0. 10:52:36 Inflation number: 2 The stent balloon was then re-inflated across the Aorta Left -> Mid CX 0 to 17 SALAZAR for 0:10 (min:sec) . 10:53:04 Inflation number: 3 The stent balloon was then re-inflated across the Aorta Left -> Mid CX to 13 SALAZAR for 0:10 (min:sec) . 10:54:04 Stent catheter was removed intact over wire. 10:55:19 VERRETA WIRE EXCHANGED FOR CHOICE PT 10:56:05 Inflate balloon Inflation number: 4 A EUPHORA 2.5 x 15 Balloon ([id number]) was prepped and advanced across the Aorta Left -> Mid CX , then inflated to 13 SALAZAR for 0:10 (min:sec) . 10:56:48 Inflation number: 5 The EUPHORA 2.5 x 15 Balloon ([id number]) was reinflated across the Aorta Left -> Mid CX , to 9 SALAZAR for 0:10 (min:sec) . 10:56:54 Inflation number: 6 The EUPHORA 2.5 x 15 Balloon ([id number]) was reinflated across the Aorta Left -> Mid CX , to 13 SALAZAR for 0:10 (min:sec) . 10:57:47 Inflation number: 7 The EUPHORA 2.5 x 15 Balloon ([id number]) was reinflated across the Aorta Left -> Mid CX , to 13 SALAZAR for 0:10 (min:sec) . 10:58:05 Guide catheter removed. 10:58:05 Multiple attempts made to obtain ACT; machine malfunction 10:58:05 Balloon removed over the wire. 10:58:05 Wire removed. 10:58:17 EXOSEAL 6Fr (EX600) opened to sterile field. 10:58:38 Post PCI Site: Vein Graft mCirc has 0% stenosis. 10:58:38 Sheath removed intact; hemostasis achieved with Exoseal to the Right Femoral artery. 10:58:42 Procedure ended.(Physican Out) 10:59:08 Fluoroscopy time 06.30 minutes. 10:59:12 Fluoroscopy dose: 1014 mGy 10:59:12 Flurop Dose total: 1014 10:59:17 Dose Area Product 20497 mGy/cm. 10:59:21 Contrast amount:Isovue 300 142ml. 10:59:24 Maximum allowable dose exceeded? No. 10:59:29 Sharps counted by scrub and verified by R.N. 10:59:30 Insertion/operative site no bleeding no hematoma. 10:59:33 Post-op/insertion site Right Femoral artery dressed using a 4 x 4 and Tegaderm. 11:00:35 Post Procedure Pulses reassessed and unchanged 11:00:38 Post procedure rhythm: unchanged. 11:00:40 Estimated blood loss: 5 ml 11:00:41 Post procedure instruction explained to patient.Patient verbalizes understanding. 11:00:42 Patient needs reinforcement of post procedure teaching. 11:00:58 Procedure type changed to Cath procedure, Diagnostic procedure, LHC, LHC w/Coronaries w/Grafts, FFR/IVUS, FFR Initial, Sedation Charges, Moderate Sedation up to 30 minutes, PCI procedure, Coronary Stent, Coronary Stent Initial 11:00:59 Procedure and supply charges have been captured, reviewed, submitted and are correct. 11:01:04 Procedure Complication : No complications 11:01:06 Vital chart was stopped 11:01:10 [facility] Findings: MVD- PCI performed (see procedure note) 11:01:11 Operative report dictated upon procedure completion. 11:01:12 See physician's report for complete and final results. 11:01:15 Report given to Pre/Post Procedure Room. 11:01:18 Patient transfered to Pre/Post Procedure Room with Stretcher. 11:04:54 Full Disclosure recording stopped 11:04:54 Procedure ended. 11:05:03 ACC-PCI Only Patient was given prescriptions, or instructed by Enrique Frankel MD to start/continue the following medications upon discharge: Plavix 11:05:04 End room use (Document Last) 11:05:41 End room use (Document Last) Intervention Summary Intervention Notes Time ActionType Lesion and Equipment Used Action# Pressure Duration Attributes 10:52:29 Place stent Aorta Left JAN RX 2.5 x 1 17 00:10 -> Mid CX 18 stent ([id number]) 10:52:36 Reinflate Aorta Left JAN RX 2.5 x 2 17 00:10 stent -> Mid CX 18 stent balloon ([id number]) 10:53:04 Reinflate Aorta Left JAN RX 2.5 x 3 13 00:10 stent -> Mid CX 18 stent balloon ([id number]) 10:56:05 Inflate Aorta Left EUPHORA 2.5 x 4 13 00:10 balloon -> Mid CX 15 Balloon ([id number]) 10:56:48 Reinflate Aorta Left EUPHORA 2.5 x 5 9 00:10 balloon -> Mid CX 15 Balloon ([id number]) 10:56:54 Reinflate Aorta Left EUPHORA 2.5 x 6 13 00:10 balloon -> Mid CX 15 Balloon ([id number]) 10:57:47 Reinflate Aorta Left EUPHORA 2.5 x 7 13 00:10 balloon -> Mid CX 15 Balloon ([id number]) Device Usage Item Name Manufacture Quantity Catalog Hospital Part Current Minimal Lot# / Number Charge Number Stock Stock Serial# Code ACIST Syringe Acist 1 80201 337732 724325 965708 20 (98856) Medical Systems Inc Bag Decanter Microtek 1 2001S 203249 71881 659906 5 () Medical Inc. Medline Cath Medline 1 [id number] 247095 05111 176567 5 Pack ([id number]) ACIST Hand Acist 1 23182 836889 947048 280578 5 Control Medical (82788) Systems Inc ACIST Manifold Acist 1 28263 260483 927604 848025 5 (91082) Medical Systems Inc DIAGNOSTIC Cardinal 1 US1046 551635 57630 125203 30 Multipack 5Fr Health catheter set (GT3247) Tegaderm 4 x 4 3M 1 1626W 886514 407697 688244 5 (1626W) SHEATH 5FR Terumo 1 MCG801 059067 358255 634830 5 [place] (VKX969) EMERALD Guide Cardinal 1 919-246 811985 352938 231995 5 Wire (502-051) Health MULTIPACK Cardinal 1 598853 5 Pigtail 5 Fr Health catheter MULTIPACK JL Cardinal 1 359906 5 4.0 5Fr Health catheter DIAGNOSTIC AR2 Cardinal 1 [id number] 153669 130192 596063 20 MOD 5 Fr Health catheter ([id number]) INFLATOR Merit Merit 1 LF4609 000897 664438 719322 15 [facility] Medical (MR2492) Stratton Stratton 1 47038M 115639 437189707 564632 5 Verrata Plus pressure wire (36127T) GUIDE 6FR AR Medtronic 1 [id number] 472558 65278 868460 1 2.0 catheter (BE7PV39) JAN RX 2.5 x Medtronic 1 [id number] 621185 2310005 058273 5 [id number] 18 stent ([id number]) EUPHORA 2.5 x Medtronic 1 [id number] 119224 827644 393456 5 [id number] 15 Balloon ([id number]) EXOSEAL 6Fr Cardinal 1 EX600 775177 475003 144530 10 (EX600) Health Signature Audit [place] Stage Time Signature Unsigned Intra-Procedure 09/01/2019 Eugenia Burch 11:05:41 AM RT(R) Intra-Procedure 09/01/2019 Checo 11:06:49 AM Paddy BUSBY Intra-Procedure 09/01/2019 Enrique Frankel MD 11:07:11 AM 09/01/2019 11:09:18 AM Intra-Procedure 09/01/2019 Enrique Frankel 11:10:30 AM Signatures Monitor : Eugenia Burch RT Signature : Date : Time : Performing Physician : Signature : Enrique Frankel MD Date : Time : Nurse : Checo Lorigan Signature : RN Date : Time : [place] [id number] [place] [address]
[~2019-09-01 08:20] MED LIST changes: +DILAUDID4 MG PO; +LIPITOR40 MG PO; +NEURONTIN600 MG PO; +TRAZODONE HCL150 MG PO
[2019-09-01 09:07] VITALS: BP 168/91; Ht 162.6 cm; Wt 72.7 kg
[2019-09-01 09:14] LABS: BASOPHILS 0.1 % (0-2); HEMATOCRIT 39.9 % (36.0-48.0); IMMATURE GRANULOCYTES 0.2 % (0-5); LYMPHOCYTES 22.2 % (15-50); MCH 28.5 pg (26.0-34.0); MCHC 35.1 g/dL (31.0-37.0); MCV 81.3 fL (80.0-100.0); MEAN PLATELET VOLUME 9.6 fL (7.4-10.4); MONOCYTES 8.7 % (2-11); NEUTROPHILS 65.8 % (40-80); PLATELET COUNT 209 10x3/uL (130-400); RBC 4.91 10x6/uL (4.00-5.40); RDW 12.6 % (11.5-14.5); WBC 8.6 10x3/uL (4.8-10.8)
[2019-09-01 09:22] LABS: CALC OSMOLALITY 291 mosm/kg (275-300); CALCIUM 9.5 mg/dL (8.5-10.1); CHLORIDE - SERUM 102 mmol/L (98-107); CREATININE - SERUM 0.7 mg/dL (0.6-1.3); GLUCOSE 399 mg/dL (74-106); SODIUM 138 mmol/L (136-145); eGFR NON AFRICAN AMERICAN > 90 mL/min (90-120)
[2019-09-01 09:23] LABS: UREA NITROGEN 11 mg/dL (7-18)
--- NOTE | 2019-09-01 11:15 | NUR ---
REC TO ROOM VIA STRETCHER FROM . MONITORING INITIATED. VSS. ROUSES TO VERBAL STIMULUS, VERY DROWSY. O2 AT 2LNC. RIGHT GROIN SOFT, NO BLEEDING/HEMATOMA NOTED. PPP R. SIDERAILS UP, BED LOW AND LOCKED, CALL LIGHT IN REACH. PT INSTRUCTED TO KEEP HEAD ON PILLOW AND LEGS STRAIGHT AND RELAXED.
--- NOTE | 2019-09-01 11:31 | NUR ---
R GROIN SOFT, NO BLEEDING OR HEMATOMA. VSS. PT ROUSES TO VERBAL, DROWSY. PPP.
--- NOTE | 2019-09-01 12:01 | NUR ---
VSS, RIGHT GROIN SOFT, NO BLEEDING/HEMATOMA. PPP R. NO COMPLAINTS.
--- NOTE | 2019-09-01 12:23 | NUR ---
ROUSES TO VERBAL STIM, APPROPRIATE. DROWSY. R GROIN SOFT, NO BLEEDING OR HEMATOMA NOTED. PPP RLE.
--- NOTE | 2019-09-01 12:50 | NUR ---
DTR AT BEDSIDE, PT ROUSES AND IS APPROPRIATE. R GROIN SOFT, PPP. NO BLEEDING/HEMATOMA. NO COMPLAINTS.
--- NOTE | 2019-09-01 13:27 | NUR ---
O2 REMOVED. SAT 97%. PT AWAKENS MORE READILY. ASKING FOR BEDPAN AND ICE CHIPS. PROVIDED. R GROIN SOFT, NO BLEEDING OR HEMATOMA. PPP.
--- NOTE | 2019-09-01 13:51 | NUR ---
NOTED PREOP GLUCOSE 399, POSTOP 304. PT HASN'T TAKEN METFORMIN IN TWO DAYS PRIOR TO HER PROCEDURE, STATES THAT SHE HAS HAD TESTING EVERYDAY AND HAS NOT BEEN TAKING ANY MEDICATIONS.
--- NOTE | 2019-09-01 14:08 | OP ---
PATIENT NAME: MINGO CORDERO MEDICAL RECORD: [id number] :60 LOCATION:D.CAT ADMISSION DATE: SURGEON: ZEE MARTINEZ MD DATE OF OPERATION: 09/01/2019 PROCEDURES: 1. PTCA stent LAD through the patent vein graft. 2. Left heart catheterization. 3. Selective coronary angiography. 4. Left ventriculogram. 5. Vein graft angiography. 6. IFR. PROCEDURE IN DETAIL: After informed consent was obtained and after a detailed description of risks, benefits as well as alternative therapies, the patient elected to proceed with angiogram and angioplasty. The right femoral area was prepped and draped in normal sterile fashion. Right femoral artery was cannulated via modified Seldinger technique with placement of 7-Tongan sheath. All catheters exchanged through this sheath. The vein graft is widely patent to the LAD and after this, there is 80% and 90% stenosis of the LAD with abnormal IFR of 0.79. FINDINGS: Left ventriculogram was performed in standard 30-degree WALTON view, reveals good cardiac wall motion, ejection fraction is 60%. SELECTIVE CORONARY ANGIOGRAPHY: 1. Left main is with no significant angiographic disease. 2. Left anterior descending is totally occluded. 3. Left circumflex is totally occluded. 4. Right coronary artery is totally occluded. 5. Vein graft to the LAD is patent; however, after this, there is 80% to 90% stenosis. 6. The vein graft to the RCA is patent. Distal RCA is patent. PTCA STENT OF THE LAD THROUGH THE PATENT VEIN GRAFT: The stent used was a 2.5 x 18 mm [place]. Result was 0% residual stenosis. OVERALL IMPRESSION: Successful PTCA stent of the LAD through the patent vein graft going from 90% initial stenosis to 0% residual. TRANSINT:[id number] Voice Confirmation ID: [id number] DOCUMENT ID: [id number] ZEE MARTINEZ MD at 1408 CC: [id number] DICTATION DATE: 09/01/19 1108 COLLECTION COORDINATOR: 09/01/19 1116 [facility] [address] [id number]
--- NOTE | 2019-09-01 14:14 | NUR ---
PT VOIDED 300 CC CLEAR MED YELLOW URINE IN BEDPAN. R GROIN REMAINS SOFT, NO BLEEDING/HEMATOMA. PPP. ELEVATED HOB 30*, PT STARTING TO TAKE ICE AND SIPS OF CLEAR DIET SODA.
--- NOTE | 2019-09-01 14:31 | NUR ---
R GROIN CDI, SOFT, NO BLEEDING/HEMATOMA. KUMAR DIET. PPP RIGHT. NO COMPLAINTS.
--- NOTE | 2019-09-01 15:00 | NUR ---
MONITORING DC, IV TO LAC DC TIP INTACT. ASSISTED TO SIT UP AT BEDSIDE. PAPI LANE PROVIDED PT REQUEST. GROIN REMAINS CDI, SOFT, NO BLEEDING OR HEMATOMA AFTER PT SITTING UP. DC INSTRUCTIONS REVIEWED. PT DRESSING AND AWAITING SON IN LAW FOR RIDE HOME.
--- NOTE | 2019-09-01 15:15 | NUR ---
R GROIN ASSESSED AFTER DRESSING, CDI, SOFT, NO BLEEDING OR HEMATOMA. DC TO PRIVATE VEHICLE W SON IN LAW WITH PRINTED DC INSTRUCTIONS.
== END | disposition home or self-care (01) ==
LOC: D.CATH 08:20
PROVIDERS: ATTEND Internal Medicine Interventional Cardiology
DX: I25.110 Atherosclerotic heart disease of native coronary artery with unstable angina pectoris (principal)
CPT/HCPCS: C9600; 93458; 93571

== ENCOUNTER 2021-02-04 19:34 | Emergency (ER) | payer MEDICARE ==
[~2021-02-04] VITALS: Ht 162.6 cm; Wt 72.7 kg
[~2021-02-04 19:34] MED LIST changes: +ALDACTONE50 MG PO; +BACLOFEN10 MG PO; +CYMBALTA20 MG PO; +JANUVIA100 MG PO; +METOPROLOL TART25 MG PO; +PRAVACHOL40 MG PO; +VITAMIN D325 MC1 PO; +ZOFRAN ODT4 MG/UDTAB PO
[2021-02-04 19:44] VITALS: Ht 162.6 cm; Wt 72.7 kg
[2021-02-04 20:33] VITALS: BP 164/91
== END 2021-02-04 20:34 | disposition home or self-care (01) ==
LOC: D.ER 19:34
DX: S63.501A Unspecified sprain of right wrist, initial encounter (principal); E11.9 Type 2 diabetes mellitus without complications; I10 Essential (primary) hypertension; Z79.84 Long term (current) use of oral hypoglycemic drugs; W19.XXXA Unspecified fall, initial encounter; Y93.9 Activity, unspecified; Y92.9 Unspecified place or not applicable

== ENCOUNTER 2021-03-16 18:30 | Emergency (ER) | payer MEDICARE, OTHER ==
[~2021-03-16] VITALS: Ht 162.6 cm; Wt 72.7 kg
[2021-03-16 18:39] VITALS: BP 145/85; Ht 162.6 cm; Wt 72.7 kg
== END 2021-03-16 20:06 | disposition left against medical advice (07) ==
LOC: D.ER 18:30
DX: K08.89 Other specified disorders of teeth and supporting structures (principal); Z53.21 Procedure and treatment not carried out due to patient leaving prior to being seen by health care provider

== ENCOUNTER 2021-03-19 16:13 | Inpatient (IN) | payer MEDICARE, OTHER ==
[~2021-03-19] VITALS: Ht 162.6 cm; Wt 74.8 kg
[2021-03-19 16:50] VITALS: BP 157/92; BMI 28.4
--- NOTE | 2021-03-19 16:50 | NUR ---
PT ARRIVED VIA WHEELCHAIR AT THIS TIME, PT AMBULATED TO HOSPITAL BED, SLOW STEADY GAIT. PT RR EVEN NON LABORED, AAOX4, ANSWERS QUESTIONS APPROP. PT ADMIT DATA COLLECTED. IV TO LEFT FOREARM 20G STARTED WITH BLOOD RETURN NOTED. PT TOELRATED WELL. SLIGHT PAIN THAT COMES AND GO REPORTED. NO NEEDS VOICED, PT ORIENTED TO ROOM AND CALL LIGHT, CONTROLS, BATHROOM. ENCOURAGED PT TO USE CALL LIGHT PRIOR TO EXITING BED TO REDUCE RISK FOR FALLS. PT STATES UNDERSTANDING. CLWR.
--- NOTE | 2021-03-19 17:00 | NUR ---
EKG PERFORMED AT THIS TIME.
[2021-03-19 17:42] LABS: BASOPHILS 0.6 % (0-2); EOSINOPHILS 3.2 % (0-7); HEMATOCRIT 37.2 % (36.0-48.0); HEMOGLOBIN 12.4 g/dL (12-16); LYMPHOCYTES 27.1 % (15-50); MCH 26.8 pg (26.0-34.0); MCHC 33.5 g/dL (31.0-37.0); MEAN PLATELET VOLUME 7.7 fL (7.4-10.4); MONOCYTES 6.9 % (2-11); NEUTROPHILS 62.2 % (40-80); PLATELET COUNT 207 10x3/uL (130-400); RBC 4.64 10x6/uL (4.00-5.40); RDW 13.8 % (11.5-14.5); WBC 6.7 10x3/uL (4.8-10.8)
[2021-03-19 18:01] LABS: CALC OSMOLALITY 276 mosm/kg (275-300); CALCIUM 9.5 mg/dL (8.5-10.1); CARBON DIOXIDE 26.9 mmol/L (21.0-32.0); CHLORIDE - SERUM 99 mmol/L (98-107); CREATININE - SERUM 0.8 mg/dL (0.6-1.3); INR 1.11 (0.85-1.17); POTASSIUM - SERUM 3.6 mmol/L (3.5-5.1); PROTIME 13.2 SECONDS (11.6-15.0); SODIUM 132 mmol/L (136-145); UREA NITROGEN 16 mg/dL (7-18); eGFR NON AFRICAN AMERICAN 77 mL/min (90-120)
[2021-03-19 18:02] LABS: GLUCOSE 288 mg/dL (74-106)
[2021-03-19 18:15] LABS: ALBUMIN 3.5 g/dL (3.4-5.0); ALKALINE PHOSPHATASE 167 U/L (30-120); ALT (SGPT) 15 U/L (10-68); AMYLASE - SERUM 27 U/L (25-115); BILIRUBIN - TOTAL 0.55 mg/dL (0.2-1.3); CKMB 1.3 U/L (0.0-3.6); CREATINE KINASE 61 UL (21-215); LIPASE 69 U/L (73-393); PHOSPHOROUS 3.6 mg/dL (2.5-4.9); PROTEIN - SERUM 7.9 g/dL (6.4-8.2); TROPONIN-I < 0.017 ng/mL (0.000-0.060)
--- NOTE | 2021-03-19 19:32 | NUR ---
GONE TO CT VIA BED.
[2021-03-19 21:00] VITALS: BP 168/83
[2021-03-19 23:35] LABS: CKMB 1.4 U/L (0.0-3.6); CREATINE KINASE 63 UL (21-215); TROPONIN-I < 0.017 ng/mL (0.000-0.060)
[2021-03-20] VITALS: BP 147/78
[2021-03-20 04:00] VITALS: BP 147/80
--- NOTE | 2021-03-20 05:52 | NUR ---
I have reviewed this patient and I concur with the Shift Assessment completed by the Licensed Practical Nurse today this shift.
[2021-03-20 07:38] LABS: BASOPHILS 0.7 % (0-2); EOSINOPHILS 5.9 % (0-7); HEMOGLOBIN 12.3 g/dL (12-16); LYMPHOCYTES 32.5 % (15-50); MCH 26.9 pg (26.0-34.0); MCHC 34.1 g/dL (31.0-37.0); MCV 78.9 fL (80.0-100.0); MEAN PLATELET VOLUME 7.7 fL (7.4-10.4); MONOCYTES 8.3 % (2-11); NEUTROPHILS 52.6 % (40-80); PLATELET COUNT 204 10x3/uL (130-400); RBC 4.56 10x6/uL (4.00-5.40); RDW 13.6 % (11.5-14.5)
[2021-03-20 08:00] VITALS: BP 130/79
[2021-03-20 08:12] LABS: ALBUMIN 2.9 g/dL (3.4-5.0); ALKALINE PHOSPHATASE 134 U/L (30-120); BILIRUBIN - TOTAL 0.42 mg/dL (0.2-1.3); C-REACTIVE PROTEIN 0.8 mg/dL (0.0-0.9); CALC OSMOLALITY 290 mosm/kg (275-300); CALCIUM 9.3 mg/dL (8.5-10.1); CARBON DIOXIDE 27.7 mmol/L (21.0-32.0); CHLORIDE - SERUM 106 mmol/L (98-107); CHOL - HDL RATIO 4.5 ratio (2.3-4.1); CHOLESTEROL, TOTAL 189 mg/dL (0-200); CKMB 1.2 U/L (0.0-3.6); CREATINE KINASE 52 UL (21-215); CREATININE - SERUM 0.8 mg/dL (0.6-1.3); GLUCOSE 219 mg/dL (74-106); HDL CHOLESTEROL 42 mg/dL (32-96); LDL CHOLESTEROL 125 mg/dL (0-100); MAGNESIUM - SERUM 1.9 mg/dL (1.8-2.4); POTASSIUM - SERUM 3.9 mmol/L (3.5-5.1); PROTEIN - SERUM 6.8 g/dL (6.4-8.2); SODIUM 142 mmol/L (136-145); TRIGLYCERIDE 114 mg/dL (30-200); UREA NITROGEN 14 mg/dL (7-18); eGFR NON AFRICAN AMERICAN 77 mL/min (90-120)
[2021-03-20 08:13] LABS: ALT (SGPT) 19 U/L (10-68); TROPONIN-I < 0.017 ng/mL (0.000-0.060)
[2021-03-20 09:07] LABS: ERYTHROCYTE SEDIMENTATION RATE 35 mm/hr (0-30)
[2021-03-20 13:19] VITALS: Ht 162.6 cm; Wt 74.8 kg
[2021-03-20 16:00] VITALS: BP 122/84
--- NOTE | 2021-03-20 16:19 | NUR ---
PT WITH COMPLAINTS OF CHEST PAIN RADIATING TO LEFT ARM. HAD TECH GET SET OF VITALS AND PULSE OX. NO SIGNIFICANT CHANGES FROM PRIOR. ON TELEMETRY WITH NO CHANGES AND RATE AT 60. PT ANXIOUS AND CALLED FAMILY TO STATE NO ONE ANSWERING HER LIGHT. NURSE IN ROOM WHEN TECH COMES WITH MESSAGE. NITRO GIVEN AND MONITORING NEED FOR SECOND DOSE. PT WAS NOT DOING ANYTHING OTHER THAN LAYING IN BED. DID HAVE SOME SOB BUT BETTER NOW AND PULSE OX 100% ON ROOM AIR.
[2021-03-20 21:05] VITALS: BP 100/61
[2021-03-21] VITALS: BP 122/68
[2021-03-21 04:27] VITALS: BP 120/73
[2021-03-21 06:35] LABS: BASOPHILS 0.7 % (0-2); EOSINOPHILS 5.3 % (0-7); HEMATOCRIT 36.4 % (36.0-48.0); HEMOGLOBIN 12.3 g/dL (12-16); LYMPHOCYTES 32.5 % (15-50); MCH 26.9 pg (26.0-34.0); MCHC 33.7 g/dL (31.0-37.0); MCV 79.9 fL (80.0-100.0); MEAN PLATELET VOLUME 7.9 fL (7.4-10.4); MONOCYTES 9.1 % (2-11); NEUTROPHILS 52.4 % (40-80); PLATELET COUNT 203 10x3/uL (130-400); RBC 4.56 10x6/uL (4.00-5.40); RDW 13.7 % (11.5-14.5); WBC 4.8 10x3/uL (4.8-10.8)
[2021-03-21 07:06] LABS: ALBUMIN 2.9 g/dL (3.4-5.0); ALKALINE PHOSPHATASE 134 U/L (30-120); ALT (SGPT) 21 U/L (10-68); BILIRUBIN - TOTAL 0.49 mg/dL (0.2-1.3); CALC OSMOLALITY 282 mosm/kg (275-300); CALCIUM 9.1 mg/dL (8.5-10.1); CARBON DIOXIDE 27.1 mmol/L (21.0-32.0); CHLORIDE - SERUM 105 mmol/L (98-107); CREATININE - SERUM 0.8 mg/dL (0.6-1.3); GLUCOSE 226 mg/dL (74-106); MAGNESIUM - SERUM 1.8 mg/dL (1.8-2.4); PHOSPHOROUS 3.2 mg/dL (2.5-4.9); PROTEIN - SERUM 6.9 g/dL (6.4-8.2); SODIUM 138 mmol/L (136-145); UREA NITROGEN 13 mg/dL (7-18); eGFR NON AFRICAN AMERICAN 77 mL/min (90-120)
[2021-03-21 09:00] VITALS: BP 147/78
[2021-03-21 15:00] VITALS: BP 132/70
[2021-03-21 15:12] LABS: BILIRUBIN NEGATIVE (NEGATIVE); KETONE NEGATIVE (NEGATIVE); NITRITE NEGATIVE (NEGATIVE); UROBILINOGEN NORMAL mg/dL (< 2)
[2021-03-21 15:16] LABS: WHITE CELLS - URINE 25-50 HPF (0-4)
[2021-03-21 15:17] LABS: BACTERIA MODERATE HPF (NONE SEEN); SQUAMOUS EPITHELIAL 0-5 HPF (0-4)
--- NOTE | 2021-03-21 19:20 | NUR ---
RECIEVED UP ON SIDE OF BED. ALERT AND ORIENTED X4. UP AD BENNIE. DENIES ANY NEEDS AT THIS TIME.
[2021-03-21 21:00] VITALS: BP 142/84
[2021-03-21 23:36] VITALS: BP 157/84
[2021-03-22 04:17] VITALS: BP 152/79
[2021-03-22 07:16] LABS: ALBUMIN 3.2 g/dL (3.4-5.0); ALKALINE PHOSPHATASE 138 U/L (30-120); ALT (SGPT) 24 U/L (10-68); BILIRUBIN - TOTAL 0.48 mg/dL (0.2-1.3); CALC OSMOLALITY 287 mosm/kg (275-300); CALCIUM 9.4 mg/dL (8.5-10.1); CARBON DIOXIDE 27.9 mmol/L (21.0-32.0); CHLORIDE - SERUM 104 mmol/L (98-107); CREATININE - SERUM 0.7 mg/dL (0.6-1.3); GLUCOSE 267 mg/dL (74-106); PHOSPHOROUS 2.8 mg/dL (2.5-4.9); POTASSIUM - SERUM 4.3 mmol/L (3.5-5.1); PROTEIN - SERUM 7.2 g/dL (6.4-8.2); SODIUM 139 mmol/L (136-145); UREA NITROGEN 14 mg/dL (7-18); eGFR NON AFRICAN AMERICAN 90 mL/min (90-120)
[2021-03-22 07:23] LABS: BASOPHILS 0.6 % (0-2); EOSINOPHILS 5.2 % (0-7); HEMATOCRIT 37.4 % (36.0-48.0); HEMOGLOBIN 12.9 g/dL (12-16); LYMPHOCYTES 33.1 % (15-50); MCH 27.4 pg (26.0-34.0); MCHC 34.7 g/dL (31.0-37.0); MEAN PLATELET VOLUME 7.8 fL (7.4-10.4); MONOCYTES 9.6 % (2-11); NEUTROPHILS 51.5 % (40-80); PLATELET COUNT 209 10x3/uL (130-400); RBC 4.73 10x6/uL (4.00-5.40); RDW 13.7 % (11.5-14.5); WBC 5.4 10x3/uL (4.8-10.8)
[2021-03-22 08:28] VITALS: BP 137/81
[2021-03-22] MEDS ORDERED: LEVAQUIN750 MG PO (11:14)
[2021-03-22] MEDS ORDERED: COLACE100 MG PO (11:15)
--- NOTE | 2021-03-22 12:00 | NUR ---
PATIENT WHEELED OUT TO RIDE, WITH PERSONAL BELONGINGS IN HAND. NAD NOTED.
--- NOTE | 2021-03-22 12:24 | MORECARE ---
CASE MANAGEMENT DISCHARGE SUMMARY PATIENT: MINGO CORDERO UNIT: [id number] ADM DATE: 03/20/21 AGE: 60 : 60 SEX: F ROOM/BED: D.3987 AUTHOR: ANDREADOC PHYSICIAN: REFERRING PHYSICIAN: XIOMARA JEREZ MD DATE OF SERVICE: 03/22/21 Case Management Discharge Planning Summary DCP REVIEW SUMMARY ANTICIPATED D/C DATE: 03/22/2021 EXPECTED LOS : 2 CASE STATUS: DCP Initiated INITIAL REVIEW: 03/19/2021 INITIAL REVIEWER: Ambar Fowler FINAL DISCHARGE DISPOSITION: 01 : Home or Self Care (Routine Discharge) FINAL REVIEWER: FINAL REVIEW DATE: DCP Focus Questions & Answers DCP Screen QUESTION: ANSWER High Risk Factors: : None Walking limitation: Patient stated self rated walking limitation present? : Yes Age: : 45 - 64 Prior living environment: : Lives Alone Disability ranking: : Grade 2: Slight disability DCP Evaluation QUESTION: ANSWER Patient and/or caregiver agree upon recommended discharge plan? : Yes Family / Caregiver's ability to cope with chronic illness: : a. Adequate (ability to meet patient's medical needs, ensures patient attends medical appts.) Patient's current cognitive status: : *Oriented to person, place, situation, time and present Patient's ability to cope with chronic illness : a. Adequate (0-3 ED visits in 6 mos., adequate financial resources, attends scheduled appts.) Does the patient have the ability to pay for or attain post discharge needs / services? : N/A Functional screen assessment: : Basic needs can adequately be met by self Family / Caregiver's ability to cope with chronic illness: : a. Adequate (ability to meet patient's medical needs, ensures patient attends medical appts.) Physical Status: : Independent with ADL's Equipment needed for post hospitalization: : None Is there a likelihood that the patient will require additional services to return to the preadmission environment? : N/A Living Arrangements: : Home Alone with Support Results of this evaluation have been discussed with: : Patient Patient with capacity for self-care or can be cared for in same environment as prior to hospitalization? : Yes Baseline cognitive status: : *Oriented to person, place, situation, time and present Physical environment modification needed / anticipated for discharge: : N/A Medication Management: : Patient states can read and understand medication labels Medication Management: : Patient states they do have transportation to pharmacy picking tech medications Medication Management: : Patient states can afford medications Planned post hospital services available for patient? : N/A Pharmacy name(s): : [facility] Planned post hospital services covered by insurance plan? : N/A Does Patient have transportation to get home and to follow-up medical appointments when discharged from the hospital? : Yes Would patient like to participate in any Care Coordination programs (if applicable): : Not applicable Does the patient have electricity at home? : Yes Does the patient have running water in their house? : Yes Equipment in use: : Walker - Rollator Equipment in use: : Cane - Quad Equipment [facility] and [facility] information[facility] Mental health screen: : No mental health history Psychosocial status: : Independent adult (18-64) Abuse/Neglect: : None Resources / Services in place: : None DCP Re-evaluation QUESTION: ANSWER Would patient like to participate in any Care Coordination programs (if applicable): : Not applicable PATIENT: MINGO CORDERO ENCOUNTER: [id number] MEDICAL RECORD#: [id number] ADMISSION DATE: 03/20/2021 DISCHARGE DATE: ATTENDING MD: ZAHRA: AGE: 60 MARITAL STATUS: W DC PLAN ID: [id number] FACILITY: [facility] PRINTED ON: 03/22/21 12:23 CT All edits/amendments must be made on the electronic document DICTATION DATE: 03/22/211222 PRODUCT/INDUSTRY CONSULTANT: SHARIFA 03/22/21 1223 RPT#: [id number] DC DATE: STATUS: ADM IN [facility] [address] [place] [address] END OF REPORT
--- NOTE | 2021-03-22 12:36 | MORECARE ---
CASE MANAGEMENT DISCHARGE SUMMARY PATIENT: MINGO CORDERO UNIT: [id number] ADM DATE: 03/20/21 AGE: 60 : 60 SEX: F ROOM/BED: D.9554 AUTHOR: ANDREA,DOC PHYSICIAN: REFERRING PHYSICIAN: XIOMARA JEREZ MD DATE OF SERVICE: 03/22/21 Case Management Discharge Planning Summary COMMENTS ENTERED DATE: 03/22/21 12:22 CT COMMENT TYPE: Discharge Planning REVIEWER: Ambar Fowler CM met with patient to complete discharge planning assessment and offer availability of needed services. Patient states she lives independently at home prior to admission. Pt verified that home environment is safe and has electricity and running water. Patient denies need for transportation and state that they have funds for services and medications if needed. Pt states that her landlords are close by and provide all her transportation, as well as check on her t/o day. PCP is Dr. Aguila and [facility] CM offered and discussed home health, rehab services, and need for any medical equipment. Patient did not express need for offered services at this time. Patient does have walker and cane currently. [facility] [place] Transportation home will be provided by landlord (Nydia Landon). Pt states that she is comfortable going home with the support of family and friends. Brochure for life line given to patient per request. DCP REVIEW SUMMARY ANTICIPATED D/C DATE: 03/22/2021 EXPECTED LOS : 2 CASE STATUS: DCP Initiated INITIAL REVIEW: 03/19/2021 INITIAL REVIEWER: Ambar Fowler FINAL DISCHARGE DISPOSITION: 01 : Home or Self Care (Routine Discharge) FINAL REVIEWER: FINAL REVIEW DATE: DCP Focus Questions & Answers DCP Screen QUESTION: ANSWER High Risk Factors: : None Walking limitation: Patient stated self rated walking limitation present? : Yes Age: : 45 - 64 Prior living environment: : Lives Alone Disability ranking: : Grade 2: Slight disability DCP Evaluation QUESTION: ANSWER Patient and/or caregiver agree upon recommended discharge plan? : Yes Family / Caregiver's ability to cope with chronic illness: : a. Adequate (ability to meet patient's medical needs, ensures patient attends medical appts.) Patient's current cognitive status: : *Oriented to person, place, situation, time and present Patient's ability to cope with chronic illness : a. Adequate (0-3 ED visits in 6 mos., adequate financial resources, attends scheduled appts.) Does the patient have the ability to pay for or attain post discharge needs / services? : N/A Functional screen assessment: : Basic needs can adequately be met by self Family / Caregiver's ability to cope with chronic illness: : a. Adequate (ability to meet patient's medical needs, ensures patient attends medical appts.) Physical Status: : Independent with ADL's Equipment needed for post hospitalization: : None Is there a likelihood that the patient will require additional services to return to the preadmission environment? : N/A Living Arrangements: : Home Alone with Support Results of this evaluation have been discussed with: : Patient Patient with capacity for self-care or can be cared for in same environment as prior to hospitalization? : Yes Baseline cognitive status: : *Oriented to person, place, situation, time and present Physical environment modification needed / anticipated for discharge: : N/A Medication Management: : Patient states can read and understand medication labels Medication Management: : Patient states they do have transportation to pharmacy picking tech medications Medication Management: : Patient states can afford medications Planned post hospital services available for patient? : N/A Pharmacy name(s): : [facility] Planned post hospital services covered by insurance plan? : N/A Does Patient have transportation to get home and to follow-up medical appointments when discharged from the hospital? : Yes Would patient like to participate in any Care Coordination programs (if applicable): : Not applicable Does the patient have electricity at home? : Yes Does the patient have running water in their house? : Yes Equipment in use: : Walker - Rollator Equipment in use: : Cane - Quad Equipment [facility] contact information[facility] screen: : No mental health history Psychosocial status: : Independent adult (18-64) Abuse/Neglect: : None Resources / Services in place: : None DCP Re-evaluation QUESTION: ANSWER Would patient like to participate in any Care Coordination programs (if applicable): : Not applicable PATIENT: MINGO CORDERO ENCOUNTER: [id number] MEDICAL RECORD#: [id number] ADMISSION DATE: 03/20/2021 DISCHARGE DATE: ATTENDING MD: ZAHRA: AGE: 60 MARITAL STATUS: W DC PLAN ID: [id number] FACILITY: [facility] PRINTED ON: 5/27/21 12:36 CT All edits/amendments must be made on the electronic document DICTATION DATE: 03/22/21 123 MANAGER UTILITIES: SHARIFA 03/22/211235 RPT#: [id number] DC DATE: STATUS: ADM IN [facility] [address] [place] [address] END OF REPORT
--- NOTE | 2021-03-22 12:45 | NUR ---
NURSE REVIEWS DISCHARGE INSTRUCTIONS WITH PATIENT AT THIS TIME, REMOVES TELE AND TAKES IV OUT WITH CATH TIP INTACT. PATIENT REMINDED OF DC FOLLOW UP APPT AND DC MEDS. PATIENT IS GOING TO CALL HER RIDE TO GET HERE. NAD NOTED.
--- NOTE | 2021-03-22 13:20 | MORECARE ---
CASE MANAGEMENT DISCHARGE SUMMARY PATIENT: MINGO CORDERO UNIT: [id number] ADM DATE: 03/20/21 AGE: 60 : 60 SEX: F ROOM/BED: D.7210 AUTHOR: ANDREA,DOC PHYSICIAN: REFERRING PHYSICIAN: XIOMARA JEREZ MD DATE OF SERVICE: 03/22/21 Case Management Discharge Planning Summary COMMENTS ENTERED DATE: 03/22/21 12:22 CT COMMENT TYPE: Discharge Planning REVIEWER: Ambar Fowler CM met with patient to complete discharge planning assessment and offer availability of needed services. Patient states she lives independently at home prior to admission. Pt verified that home environment is safe and has electricity and running water. Patient denies need for transportation and state that they have funds for services and medications if needed. Pt states that her landlords are close by and provide all her transportation, as well as check on her t/o day. PCP is Dr. Aguila and [facility]. CM offered and discussed home health, rehab services, and need for any medical equipment. Patient did not express need for offered services at this time. Patient does have walker and cane currently. [facility] [place]. Transportation home will be provided by landlord (Nydia Landon). Pt states that she is comfortable going home with the support of family and friends. Brochure for life line given to patient per request. DCP REVIEW SUMMARY ANTICIPATED D/C DATE: 03/22/2021 EXPECTED LOS : 2 CASE STATUS: DCP Initiated INITIAL REVIEW: 03/19/2021 INITIAL REVIEWER: Ambar Fowler FINAL DISCHARGE DISPOSITION: 01 : Home or Self Care (Routine Discharge) FINAL REVIEWER: FINAL REVIEW DATE: DCP Focus Questions & Answers DCP Screen QUESTION: ANSWER High Risk Factors: : None Walking limitation: Patient stated self rated walking limitation present? : Yes Age: : 45 - 64 Prior living environment: : Lives Alone Disability ranking: : Grade 2: Slight disability DCP Evaluation QUESTION: ANSWER Patient and/or caregiver agree upon recommended discharge plan? : Yes Family / Caregiver's ability to cope with chronic illness: : a. Adequate (ability to meet patient's medical needs, ensures patient attends medical appts.) Patient's current cognitive status: : *Oriented to person, place, situation, time and present Patient's ability to cope with chronic illness : a. Adequate (0-3 ED visits in 6 mos., adequate financial resources, attends scheduled appts.) Does the patient have the ability to pay for or attain post discharge needs / services? : N/A Functional screen assessment: : Basic needs can adequately be met by self Family / Caregiver's ability to cope with chronic illness: : a. Adequate (ability to meet patient's medical needs, ensures patient attends medical appts.) Physical Status: : Independent with ADL's Equipment needed for post hospitalization: : None Is there a likelihood that the patient will require additional services to return to the preadmission environment? : N/A Living Arrangements: : Home Alone with Support Results of this evaluation have been discussed with: : Patient Patient with capacity for self-care or can be cared for in same environment as prior to hospitalization? : Yes Baseline cognitive status: : *Oriented to person, place, situation, time and present Physical environment modification needed / anticipated for discharge: : N/A Medication Management: : Patient states can read and understand medication labels Medication Management: : Patient states they do have transportation to greens picker medications Medication Management: : Patient states can afford medications Planned post hospital services available for patient? : N/A Pharmacy name(s): : [facility] Planned post hospital services covered by insurance plan? : N/A Does Patient have transportation to get home and to follow-up medical appointments when discharged from the hospital? : Yes Would patient like to participate in any Care Coordination programs (if applicable): : Not applicable Does the patient have electricity at home? : Yes Does the patient have running water in their house? : Yes Equipment in use: : Walker - Rollator Equipment in use: : Cane - Quad Equipment [facility] screen: : No mental health history Psychosocial status: : Independent adult (18-64) Abuse/Neglect: : None Resources / Services in place: : None DCP Re-evaluation QUESTION: ANSWER Would patient like to participate in any Care Coordination programs (if applicable): : Not applicable PATIENT: MINGO CORDERO ENCOUNTER: [id number] MEDICAL RECORD#: [id number] ADMISSION DATE: 03/20/2021 DISCHARGE DATE: 03/22/2021 ATTENDING MD: ZAHRA: AGE: 60 MARITAL STATUS: W DC PLAN ID: [id number] FACILITY: [facility] PRINTED ON: 03/22/21 13:20 CT All edits/amendments must be made on the electronic document DICTATION DATE: 03/22/21 132 LOCK CORNER MACHINE OPERATOR: SHARIFA 03/22/21 132 RPT#: [id number] DC DATE:03/22/21 STATUS: DIS IN [facility] [address] [place] [address] END OF REPORT
--- NOTE | 2021-03-23 12:04 | CN ---
PATIENT NAME:MINGO ARELLANO MEDICAL RECORD: [id number] : 60 LOCATION:D. D.2120 ADMIT DATE: 03/20/21 ACCOUNT: [id number] CONSULTING PHYSICIAN: HAN BOLDEN MD REFERRING PHYSICIAN: XIOMARA JEREZ MD DATE OF CONSULTATION: 03/20/2021 HISTORY OF PRESENT ILLNESS: Ms. Arellano was admitted. She is not really sure what for but she says she was concerned about a knot on the right side of her neck that is what the consult was for, right submandibular sialadenitis. She had a CT scan done, which really did not show anything, maybe slight enlargement of that right gland, otherwise negative. She does say that she has always had problems with very dry mouth. She noticed a knot there about 5 days ago little bit sore. No fever, chills, or systemic symptoms. PAST MEDICAL HISTORY: Reviewed in the chart. PHYSICAL EXAMINATION: GENERAL: Normal. She is supine in hospital bed. Normal voice, conversant, good historian. Face is normal and symmetric, no lesions. EYES: Conjunctivae normal. Ears: Canals and TMs appear normal. NOSE: No mass, polyps, or drainage. ORAL CAVITY AND OROPHARYNX: No trismus. Tongue is midline. Pharynx is normal. Floor of the mouth a little bit sore on the floor of the mouth on the right side. NECK: Submandibular gland. She has got visible ptotic submandibular glands bilaterally. Cannot say the right is larger, but is a little bit sore to palpation. Bimanual palpation of floor of the mouth again a little bit sore. Her white count is about 5. IMPRESSION: Mild right submandibular sialadenitis. CT scan, I looked at the films. There was no stone seen, but it is hard to rule out because there is some artifact from some dental work, so cannot completely rule out a stone there, but she is at least seems to get a little bit better. She is not getting worse in the past 2-3 days. She says maybe a little better. I would recommend treating her for a dry mouth. I talked to her about that sialagogues and antibiotics for about a week and I expect this to continue to get better. We can see her in the clinic after discharge, but I think it is mainly related to dry mouth, although cannot rule out a stone completely. She has never had this before. TRANSINT:[id number] Voice Confirmation ID: [id number] DOCUMENT ID: [id number] HAN BOLDEN MD at 1204 CC: [id number] DICTATION DATE: 03/20/21 1400 ENGINEERING PATTERNMAKER: 03/21/21 0653 DIS IN 03/22/[address] [facility] [address] [place] [address]
--- NOTE | 2021-03-23 20:10 | MORECARE ---
CASE MANAGEMENT DISCHARGE SUMMARY PATIENT: MINGO CORDERO UNIT: [id number] ADM DATE: 03/20/21 AGE: 60 : 60 SEX: F ROOM/BED: D.4341 AUTHOR: ANDREA,DOC PHYSICIAN: REFERRING PHYSICIAN: XIOMARA JEREZ MD DATE OF SERVICE: 03/23/21 Case Management Discharge Planning Summary COMMENTS ENTERED DATE: 03/22/21 12:22 CT COMMENT TYPE: Discharge Planning REVIEWER: Ambar Fowler CM met with patient to complete discharge planning assessment and offer availability of needed services. Patient states she lives independently at home prior to admission. Pt verified that home environment is safe and has electricity and running water. Patient denies need for transportation and state that they have funds for services and medications if needed. Pt states that her landlords are close by and provide all her transportation, as well as check on her t/o day. PCP is Dr. Aguila and [facility]. CM offered and discussed home health, rehab services, and need for any medical equipment. Patient did not express need for offered services at this time. Patient does have walker and cane currently. [facility] [place]. Transportation home will be provided by landlord (Nydia Landon). Pt states that she is comfortable going home with the support of family and friends. Brochure for life line given to patient per request. DCP REVIEW SUMMARY ANTICIPATED D/C DATE: 03/22/2021 EXPECTED LOS : 2 CASE STATUS: DCP Initiated INITIAL REVIEW: 03/19/2021 INITIAL REVIEWER: Ambar Fowler FINAL DISCHARGE DISPOSITION: 01 : Home or Self Care (Routine Discharge) FINAL REVIEWER: FINAL REVIEW DATE: DCP Focus Questions & Answers DCP Screen QUESTION: ANSWER High Risk Factors: : None Walking limitation: Patient stated self rated walking limitation present? : Yes Age: : 45 - 64 Prior living environment: : Lives Alone Disability ranking: : Grade 2: Slight disability DCP Evaluation QUESTION: ANSWER Patient's ability to cope with chronic illness : a. Adequate (0-3 ED visits in 6 mos., adequate financial resources, attends scheduled appts.) Patient's current cognitive status: : *Oriented to person, place, situation, time and present Family / Caregiver's ability to cope with chronic illness: : a. Adequate (ability to meet patient's medical needs, ensures patient attends medical appts.) Patient and/or caregiver agree upon recommended discharge plan? : Yes Physical Status: : Independent with ADL's Family / Caregiver's ability to cope with chronic illness: : a. Adequate (ability to meet patient's medical needs, ensures patient attends medical appts.) Functional screen assessment: : Basic needs can adequately be met by self Does the patient have the ability to pay for or attain post discharge needs / services? : N/A Living Arrangements: : Home Alone with Support Is there a likelihood that the patient will require additional services to return to the preadmission environment? : N/A Equipment needed for post hospitalization: : None Baseline cognitive status: : *Oriented to person, place, situation, time and present Patient with capacity for self-care or can be cared for in same environment as prior to hospitalization? : Yes Results of this evaluation have been discussed with: : Patient Physical environment modification needed / anticipated for discharge: : N/A Medication Management: : Patient states can afford medications Medication Management: : Patient states they do have transportation to bulk picker medications Medication Management: : Patient states can read and understand medication labels Pharmacy name(s): : [facility] Planned post hospital services available for patient? : N/A Does Patient have transportation to get home and to follow-up medical appointments when discharged from the hospital? : Yes Planned post hospital services covered by insurance plan? : N/A Would patient like to participate in any Care Coordination programs (if applicable): : Not applicable Does the patient have electricity at home? : Yes Does the patient have running water in their house? : Yes Equipment in use: : Cane - Quad Equipment in use: : Walker - Rollator Equipment [facility] and contact information: : [facility] screen: : No mental health history Psychosocial status: : Independent adult (18-64) Abuse/Neglect: : None Resources / Services in place: : None [facility] Re-evaluation QUESTION: ANSWER Would patient like to participate in any Care Coordination programs (if applicable): : Not applicable PATIENT: MINGO CORDERO ENCOUNTER: [id number] MEDICAL RECORD#: [id number] ADMISSION DATE: 03/20/2021 DISCHARGE DATE: 03/22/2021 ATTENDING MD: ZAHRA: AGE: 60 MARITAL STATUS: W DC PLAN ID: [id number] FACILITY: [facility] PRINTED ON: 03/23/21 20:09 CT All edits/amendments must be made on the electronic document DICTATION DATE: 03/23/212008 GENERAL PRODUCTION LABORER: SHARIFA 03/23/212008 RPT#: [id number] DC DATE:03/22/21 STATUS: DIS IN [facility] [address] [place] [address] END OF REPORT
== END 2021-03-22 13:17 | disposition home or self-care (01) | DRG 155 ==
LOC: D.M2 16:13 → OBSVTIME 16:19 → D.M2 03-20 14:28
PROVIDERS: Emergency Medicine; ADMIT Family Medicine; ATTEND Family Medicine
DX: K11.20 Sialoadenitis, unspecified (principal); N39.0 Urinary tract infection, site not specified; I25.119 Atherosclerotic heart disease of native coronary artery with unspecified angina pectoris; R07.9 Chest pain, unspecified; E11.65 Type 2 diabetes mellitus with hyperglycemia; R59.0 Localized enlarged lymph nodes; I10 Essential (primary) hypertension; E78.5 Hyperlipidemia, unspecified; G35 Multiple sclerosis; E11.40 Type 2 diabetes mellitus with diabetic neuropathy, unspecified; K21.9 Gastro-esophageal reflux disease without esophagitis; G47.00 Insomnia, unspecified